=== PATIENT | female | born 2000 | race Caucasian/White ===

== ENCOUNTER 2021-02-17 20:59 | Emergency (ER) | payer MEDICAID, SELFPAY ==
[2021-02-17 21:09] VITALS: BP 115/72; PULSE 86; RESP 18; TEMP 36.4; O2SAT 100
[2021-02-17 22:31] LABS: Influenza A PCR NEGATIVE (Negative); Influenza B PCR NEGATIVE (Negative); Resp Syncy Virus RNA Qual PCR NEGATIVE (Negative); SARS COV2 PCR INHOUSE NEGATIVE (Negative)
--- NOTE | 2021-02-17 23:35 | ED_ITS ---
HPI - General Adult General Chief complaint: Upper Respiratory Symptoms Stated complaint: sore throat,cough Time Seen by Provider: 02/17/21 23:35 Source: patient Mode of arrival: ambulatory Limitations: no limitations History of Present Illness HPI narrative: 20-year-old female came in for evaluation generalized body aches, runny nose, mild dry cough, patient was exposed to her grandmother who were sick. Patient is known history of asthma but has no difficulty breathing. Related Data Allergies Allergy/AdvReac Type Severity Reaction Status Date / Time No Known Allergies Allergy Unverified 12/17/19 16:56 Review of Systems Review of Systems: All other systems are reviewed and are negative Constitutional: Reports as per HPI and Reports no additional constitutional complaints Eyes: Reports as per HPI and Reports no additional eye complaints Reports system reviewed and no additional complaints, except as documented Cardiovascular: Reports as per HPI and Reports no additional cardiovascular complaints Respiratory: Reports as per HPI and Reports no additional respiratory complaints Gastrointestinal: Reports as per HPI and Reports no additional gastrointestinal complaints Genitourinary: Reports no additional female genitourinary complaints Musculoskeletal: Reports no additional musculoskeletal complaints Skin/Breast: Reports system reviewed and no additional complaints, except as docu Psychiatric: Reports no additional psychiatric complaints Endocrine: Reports no additional endocrine complaints Hematologic/Lymphatic: Reports no additional hematologic/lymphatic complaints Allergic/Immunologic: Reports no additional allergic/immunologic complaints Reports system reviewed and no additional complaints, except as documented and Reports Abnormal speech present [facility] Past Medical History Medical History No known health problems Social History Social History Advance Directives: No Advance Directives Information Provided: No Patient : No Physical Exam Vital Signs: Vital Signs: Last Vital Signs Temp 97.6 F 02/17/21 21:09 Pulse 86 02/17/21 21:09 Resp 18 02/17/21 21:09 BP 115/72 02/17/21 21:09 Pulse Ox 100 02/17/21 21:09 Body Mass Index 20.0 vital signs have been reviewed as appeared to be correct. Blood pressure normal. Heart rate normal. Respiration rate normal. Temperature normal. Oxygen saturation normal. Appearance: Alert. Oriented X3. No acute distress. Head: Normal external exam. Normocephalic. Atraumatic. No Pollack signs noted. No raccoon eyes noted Eyes: PERRLA. EOMI. Conjunctiva and sclera normal. Eyelids normal. ENT: TM's Normal. Pharynx normal. Uvula midline. Moist mucous membranes. No trismus noted. No drooling noted. No muffled voice noted. Neck: Normal inspection. Neck supple. FROM. No adenopathy. Thyroid Normal. No meningeal signs. No neck mass noted. CVS: Normal heart rate and rhythm. Heart sound normal. No murmurs noted. Pulses normal throughout. Respiratory: No respiratory distress. Painless inspiration. Breath sounds normal. No wheezes/rales/rhonchi noted. Chest nontender. No accessory muscle usage noted or decreased air movement noted. Abdomen: Soft and nontender. Bowel sounds normal in all 4 quadrants. No distention noted. No organomegaly noted. No visible injury noted. Back: No CVA tenderness. Full range of motion noted. Skin: Skin warm and dry. Normal skin color. Normal skin turgor. No rashes/lesions/lacerations noted. Extremities: No lower extremity edema. Extremities exhibit normal range of motion. Extremities nontender. Neuro: Oriented X 3. Cranial nerve exam: II-XII are grossly intact No motor deficit. No sensory deficit. Reflexes normal. Course Course Course Narrative: Assessment and plan. 20-year-old female came in with viral syndrome symptoms, patient tested negative for COVID / influenza/ RSV. Patient was instructed to use NSAIDs for fever and body ache and drink plenty of fluids. Medical Decision Making Lab Data Lab results reviewed: Yes I reviewed the patient's lab results. Labs: Lab Results 02/17/21 Range/Units 21:39 Influenza Type A (PCR) NEGATIVE (Negative) Influenza Type B (PCR) NEGATIVE (Negative) RSV RNA Qual (PCR) NEGATIVE (Negative) SARS-CoV-2 RNA (RT-PCR) NEGATIVE (Negative) Discharge Plan Discharge Clinical Impression: Acute viral syndrome Patient Disposition: Home, Self-Care Instructions: Viral Syndrome (ED) Additional Instructions: no COVID infection. Referrals: [facility] [Primary Care Provider] - 2 days
[2021-02-18 00:25] VITALS: BP 108/62; PULSE 64; RESP 16; TEMP 36.9; O2SAT 100
== END 2021-02-18 00:26 | disposition home or self-care (01) ==
PROVIDERS: Emergency Provider Emergency Medicine
DX: B34.9 Viral infection, unspecified (principal); Z20.822 Contact with and (suspected) exposure to COVID-19
CPT/HCPCS: 0241U; 36415; 99283

== ENCOUNTER 2021-12-17 14:31 | Inpatient (IN) | payer MEDICAID, SELFPAY ==
[2021-12-17] VITALS (7 sets, daily range): BP systolic 94–130; BP diastolic 46–78; PULSE 74–110; RESP 14–18; TEMP 36.6–38.3; O2SAT 100; BMI 23.3
--- NOTE | ~2021-12-17 | MR_ITS ---
EXAMINATION: MR LUMBAR SPINE WITHOUT AND WITH CONTRAST CLINICAL INFORMATION: Lumbar pain/pyelonephritis. COMPARISON: None TECHNIQUE: MRI of the lumbar spine was obtained using routine sequences without and with intravenous contrast. A total of 6.5 mL Gadavist was intravenously administered. Images are mild to moderately motion degraded. FINDINGS: The lumbar vertebral bodies maintain normal heights and alignment. The disc heights are preserved. No bone marrow edema is seen. The distal spinal cord appears normal. The conus medullaris terminates normally at the T12 level. There is mild amount of edema within the posterior paraspinal musculature. No paraspinal collection is seen. The psoas musculature appears symmetric. The retroperitoneal tissues are within normal limits. SPINAL LEVELS: L1-L2: No posterior disc abnormality. No spinal canal or neural foraminal stenosis. L2-L3: No posterior disc abnormality. No spinal canal or neural foraminal stenosis. L3-L4: No posterior disc abnormality. No spinal canal or neural foraminal stenosis. L4-L5: Shallow central protrusion. No spinal canal or neural foraminal stenosis. L5-S1: No posterior disc abnormality. No spinal canal or neural foraminal stenosis. MR/MR lumbar spine wo/w con IMPRESSION: No significant abnormality in the lumbar spine. No spinal canal stenosis or nerve root compression. Small central protrusion seen at L4-L5. Mild nonspecific posterior paraspinal edema without collection. No abnormal enhancement identified.
--- NOTE | ~2021-12-17 | US_ITS ---
EXAMINATION: US PELVIS CLINICAL INFORMATION: Abdominal pain. Right adnexal lesion noted on same-day CT of the abdomen/pelvis. COMPARISON: CT abdomen/pelvis 12/17/2021. TECHNIQUE: Ultrasound of the pelvis is performed using both transabdominal and transvaginal transducers along with Doppler. Transvaginal imaging is performed due to inadequate visualization transabdominally. FINDINGS: The uterus is anteverted and measures 7.6 x 4.1 x 5 cm. No fibroid noted. The endometrium measures 0.2 cm in thickness without discrete focal abnormality. There is preserved flow to both ovaries at the moment of this examination. The left ovary measures 3.4 x 2 x 3.5 cm (13 mL). The right ovary measures 5.5 x 4 x 4 cm (46 mL). Discrepancy in size is likely related with the presence of a 4.1 x 2.7 x 2.7 cm complicated cystic lesion in the right ovary demonstrating layering and lacelike debris. Small amount of free fluid. US/US pelvic ovarian doppler IMPRESSION: There is a 4.1 cm right ovarian cystic lesion with layering and lacelike debris coming favored to represent a hemorrhagic cyst. A follow-up pelvic ultrasound in 6-12 weeks is recommended to reassess. There is preserved flow to both ovaries at the moment of this examination. A small amount of free fluid in the pelvis is likely physiologic.
--- NOTE | ~2021-12-17 | US_ITS ---
EXAMINATION: US PELVIS CLINICAL INFORMATION: Abdominal pain. Right adnexal lesion noted on same-day CT of the abdomen/pelvis. COMPARISON: CT abdomen/pelvis 12/17/2021. TECHNIQUE: Ultrasound of the pelvis is performed using both transabdominal and transvaginal transducers along with Doppler. Transvaginal imaging is performed due to inadequate visualization transabdominally. FINDINGS: The uterus is anteverted and measures 7.6 x 4.1 x 5 cm. No fibroid noted. The endometrium measures 0.2 cm in thickness without discrete focal abnormality. There is preserved flow to both ovaries at the moment of this examination. The left ovary measures 3.4 x 2 x 3.5 cm (13 mL). The right ovary measures 5.5 x 4 x 4 cm (46 mL). Discrepancy in size is likely related with the presence of a 4.1 x 2.7 x 2.7 cm complicated cystic lesion in the right ovary demonstrating layering and lacelike debris. Small amount of free fluid. US/US pelvic and transvaginal IMPRESSION: There is a 4.1 cm right ovarian cystic lesion with layering and lacelike debris coming favored to represent a hemorrhagic cyst. A follow-up pelvic ultrasound in 6-12 weeks is recommended to reassess. There is preserved flow to both ovaries at the moment of this examination. A small amount of free fluid in the pelvis is likely physiologic.
--- NOTE | ~2021-12-17 | US_ITS ---
EXAMINATION: US RETROPERITONEAL LIMITED (RENAL ONLY) CLINICAL INFORMATION: Pyelonephritis, evaluate for abscess. COMPARISON: CT abdomen and pelvis 12/17/2021 TECHNIQUE: Renal ultrasound was performed utilizing a curved array transducer. FINDINGS: RIGHT KIDNEY: 12.3 x 5 x 5 cm (SAG x AP x TRV). The kidney is normal in size, contour, and echogenicity. Renal cortical thickness is normal. No calculi or focal parenchymal lesions. No hydronephrosis. LEFT KIDNEY: 11.1 x 5.9 x 5.4 cm (SAG x AP x TRV). The kidney is normal in size, contour, and echogenicity. Renal cortical thickness is normal. No calculi or focal parenchymal lesions. No hydronephrosis. US/US renal BI IMPRESSION: 1. No focal renal lesion/abscess identified sonographically. 2. No hydronephrosis.
--- NOTE | ~2021-12-17 | CT_ITS ---
EXAMINATION: CT ABDOMEN AND PELVIS WITH CONTRAST CLINICAL INFORMATION: Diffuse abdominal pain. Nausea and vomiting. COMPARISON: None. TECHNIQUE: Multidetector CT volumetric acquisition of the abdomen and pelvis was performed after the administration of 85 mL of intravenous Omnipaque 350. The data set was reformatted in the sagittal and coronal planes and reviewed on an independent workstation. This CT examination was performed using dose optimization techniques as appropriate, variously including the following: *Automated exposure control *Adjustment of mA and/or kV according to patient size (this includes techniques or standardized protocols for targeted exams where dose is matched to indication/reason for exam; i.e. extremities or head) *Use of iterative reconstruction technique DLP: 408 mGy-cm. FINDINGS: LOWER CHEST: Included lung bases unremarkable. LIVER, GALLBLADDER, BILIARY TREE: Liver normal size and attenuation. There is a 0.6 cm low-attenuation mass in hepatic segment 4B/5 (series 3, image 24) too small to characterize. No intra-or extrahepatic ductal dilatation. Hepatic and portal veins patent. Gallbladder partially distended and within normal limits. PANCREAS: Normal. No ductal dilatation, mass, or surrounding stranding. SPLEEN: Normal size and appearance. Splenic vein patent. ADRENAL GLANDS AND KIDNEYS: Adrenal glands normal. Right kidney is normal. There is ill-defined region of global hypoenhancement in the upper pole of the left kidney (series 5, image 48), extending from the renal medulla to the capsule measuring approximately 3.9 x 2.9 cm. No cortical rim sign is seen and findings are highly suspicious for lobar nephronia/acute focal nephritis. In the mid left kidney, there is a ill-defined smaller and slightly more defined hypoenhancing 1.8 x 1.1 cm mass (series 5, image 38), likely representing the second region of acute focal nephritis with possible subtle evolving abscess. URETERS AND BLADDER: Ureters decompressed and within normal limits. Bladder partially distended and suboptimally assessed, but grossly unremarkable. PELVIC ORGANS: Uterus anteverted and anteflexed and within normal limits. Left ovary is seen anteriorly in the left adnexa adjacent to the iliac vessels, measuring 3.9 x 2.1 x 2.5 cm and appearing unremarkable. The right ovary is seen posteriorly in the adnexa, measuring 4.7 x 3.8 x 3.8 cm. There is a dominant 2.8 x 2.7 x 3.4 cm complex cystic mass with fluid level, suspicious for hemorrhagic cyst or endometrioma. There is a small amount of free fluid in the pelvis. GASTROINTESTINAL TRACT: Normal. Small and large bowel loops decompressed. Appendix in right lower quadrant is partially visualized and appears unremarkable to the extent seen.. LYMPHOVASCULAR STRUCTURES: Abdominal aorta normal in caliber. No periaortic collections. No abdominal or pelvic adenopathy or free fluid collection. BONES: Within normal limits. CT/CT abdomen pelvis w IV con IMPRESSION: 1. Abnormal appearance of the left kidney. Findings are highly suspicious for lobar nephronia/acute focal nephritis in the upper pole. Similar smaller ill-defined region of masslike hypoenhancement is seen in the mid left kidney, possibly a subtle evolving abscess. Close clinical correlation and follow-up imaging post treatment is recommended to document resolution of findings. 2. Indeterminate 0.6 cm low-attenuation mass in the central liver, too small to adequately characterize. This can be reassessed at the time of the above suggested follow-up imaging to ensure stability. 3. Enlarged right ovary with dominant complex cystic mass fluid level, suspicious for a hemorrhagic cyst or endometrioma. Close clinical correlation and follow-up assessment with transvaginal pelvic ultrasound is recommended. This result was discussed with LYNN Roblero 12/17/2021, 5:23 PM and it was ascertained that the content and urgency of this report was understood at the time of direct communication.
[2021-12-17 15:00] LABS: Basophils Percent Auto 0.1 % (0-2); Eosinophils Percent Auto 0.1 % (0-4); Hematocrit 32.4 % (37.0-47.0); Imm Gran Abs Auto 0.12 X10*3/uL (0.00-0.03); Imm Gran Pct Auto 0.6 % (0.0-0.4); Lymphocytes Absolute Auto 1.2 X10*3/uL (1.2-4.9); Lymphocytes Percent Auto 6.1 % (20-40); MANUAL DIFF FLAG SCAN; Mean Corpuscular Hemoglobin 30.1 pg (27.0-33.0); Mean Corpuscular Volume 88.8 fL (80.0-98.0); Mean Platelet Volume 10.8 fL (9.4-12.3); Monocytes Absolute Auto 1.8 X10*3/uL (0.1-1.2); Monocytes Percent Auto 9.3 % (2-11); Neutrophils Absolute Auto 16.6 x10*3/uL (2.0-8.3); Neutrophils Percent Auto 83.8 % (45-73); Platelet Count 250 X10*3/uL (160-400); Red Blood Count 3.65 X10*6/uL (4.20-5.50); Red Cell Distribution Width 13.1 % (11.0-16.0); SCAN SMEAR FLAG 1; White Blood Count 19.8 X10*3/uL (4.8-10.8)
[2021-12-17 15:17] LABS: Alanine Aminotransferase 23 U/L (0-31); Albumin Level 3.8 g/dL (3.5-5.0); Alkaline Phosphatase 90 U/L (39-117); Anion Gap 18 (12-20); Aspartate Amino Transferase 22 U/L (5-31); Bilirubin Direct 0.5 mg/dL (0.0-0.5); Bilirubin Total 0.9 mg/dL (0.0-1.0); Blood Urea Nitrogen 10 mg/dL (9-16); Calcium 8.8 mg/dL (8.4-10.2); Carbon Dioxide 21 mmol/L (22-29); Chloride 98 mmol/L (96-108); Creatinine Clr Calc Pharmacy 101.3; Estimated Glomerular Filt Rate > 60; Glucose Random 85 mg/dL (60-115); Lipase 9 U/L (8-78); Potassium 3.6 mmol/L (3.3-5.1); Sodium 133 mmol/L (135-145); Total Protein 7.4 g/dL (6.5-8.0)
[2021-12-17 15:20] LABS: SLIDE REVIEW VERIFIED
[2021-12-17 15:22] LABS: Lactic Acid 2.5 mmol/L (0.5-2.0)
[2021-12-17 15:30] LABS: COVID-19 Test Negative (Negative)
[2021-12-17] MEDS: Acetaminophen 325 MG TABLET 975 MG PO (15:34)
[2021-12-17] MEDS: 0.9 % Sodium Chloride 1,000 ML 999 ML IVCONT ×2 (15:35→15:52)
[2021-12-17] MEDS: ondansetron HCL 4 MG/2 ML VIAL IVPUSH ×2 (15:35→19:24)
[2021-12-17] MEDS: Morphine Sulfate 4 MG/ML CARTRIDGE IVPUSH ×3 (15:35→23:33)
[2021-12-17 15:54] LABS: HCG Quantitative < 2 mIU/mL
--- NOTE | 2021-12-17 16:14 | PC.NURSE ---
Provider aware of temperature
--- NOTE | 2021-12-17 16:28 | ED_ITS ---
HPI - Abdominal Pain General Chief Complaint: Nausea/Vomiting/Diarrhea Stated Complaint: ABD PAIN Time Seen by Provider: 12/17/21 15:27 Source: patient and family Limitations: no limitations History of Present Illness HPI narrative: 21-year-old female with no pertinent PMH presenting with constipation, abdominal pain, nausea, vomiting, fevers x 4 days. Patient reports no bowel movement for at least 4 days, and has been experiencing gradual worsening abdominal pain, nausea and vomiting since. Reports feeling ?numb ?, weak, chest heaviness, and being cold since she presented to the hospital. Patient upset and crying stating she thinks she is going to , not giving a very good history or answering questions. Patient reports she is currently on her period, no chills she could be . MD elicited complaint: abdominal pain Onset (ago): day(s) Pain Consistency: other (Worsening) Location: diffuse Severity: severe Associated symptoms: nausea, vomiting, fever and chills Related Data Allergies Allergy/AdvReac Type Severity Reaction Status Date / Time No Known Allergies Allergy Unverified 12/17/19 16:56 Review of Systems Review of Systems Constitutional : + Fever, + Chills, No Night Sweats, + Fatigue, + Malaise. Patient stating ?Im dying ? Cardiovascular : + Chest heaviness , No SOB Respiratory : No Cough, No Sputum, No Wheezing, No Dyspnea Gastrointestinal : + Nausea, + Vomiting, + constipation, No Diarrhea, + abdominal Pain, No Hematochezia, No Melena Genitourinary : Currently on menstrual cycle, No irregular bleeding, No Dysuri a, No Urinary Frequency, No Hematuria,No Urinary Incontinence, No Urgency, No Flank Pain Musculoskeletal : No joint pain, No Myalgias, No Joint Swelling Skin : No Skin Lesions, No rash Neuro : + Weakness, + Numbness, No Paresthesias, No Loss of Consciousness, No Dizziness, No Headache Heme/Lymph: No Lymphadenopathy Endocrine : No Temperature Intolerance Yes all other systems are reviewed and are negative [facility] Past Medical History Medical History No known health problems Social History Social History Advance Directives: No Advance Directives Information Provided: No Physical Exam ED Vital Signs: Vital Signs - 24 hr 12/17/21 14:40 12/17/21 15:35 12/17/21 18:06 Temperature 101 F H Pulse Rate 101 H Respiratory Rate 17 14 15 Blood Pressure 101/50 L Pulse Oximetry 100 Oxygen Delivery Method Room Air BMI result Body Mass Index 23.3 Vital signs have been reviewed and all within normal limits Appearance: Alert. Oriented X3. Patient tearful, upset, distressed. Patient shaking, pseudo seizure like activity, answering questions Head: Normal external exam. Normocephalic. Eyes: PERRLA. EOMI. Conjunctiva and sclera normal. Eyelids normal. ENT: Pharynx normal. Uvula midline. Moist mucous membranes. No trismus noted. No drooling noted. No muffled voice noted. Neck: Normal inspection. Neck supple. FROM. No adenopathy. No meningeal signs. CVS: Normal heart rate and rhythm. Heart sound normal. No murmurs noted. Pulses normal throughout. Respiratory: No respiratory distress. Painless inspiration. Breath sounds normal. No wheezes/rales/rhonchi noted. Chest nontender. No accessory muscle usage noted or decreased air movement noted. Abdomen: Soft and diffusely tender. Nondistended. + guarding. No rigidity. Bowel sounds normal in all 4 quadrants. . No organomegaly noted. No visible injury noted. Not tolerating exam, writhing in pain. Back: No CVA tenderness. Full range of motion noted. Skin: Skin warm, diaphoretic. Normal skin color. Normal skin turgor. No rashes/lesions/lacerations noted. Extremities: Extremities exhibit normal range of motion. Extremities nontender. Neuro: Oriented X 3. No motor deficit. No sensory deficit. Reflexes normal. Normal steady gait. CN's II-XII intact bilaterally? Course Course Course Narrative: 15:30 21-year-old female with no pertinent PMH presenting with constipation, abdominal pain, decreased urine output, nausea, vomiting, fevers x 4 days. On exam, febrile 101.1, tachycardic at 101. Patient tearful, upset, distress, breathing in pain on stretcher, with pseudo seizure like activity. Patient talking significant other, answering questions intermittently. Abdomen diffusely tender on exam, patient not tolerating palpation. - Labs were obtained in triage and Labs remarkable for leukocytosis 19.8, HGB 11, sodium 113, lactic acid 2.5. - patient negative for COVID. - therefore at this time will obtain CT abdomen pelvis pending at this time. - IV fluids initiated, Tylenol for antipyretic, IV morphine and 4 mg of Zofran and will reassess after CT results. Reevaluation(s) Reevaluation #1: - CT scan abdomen pelvis revealed abnormal appearance of left kidney questioning lobular nephronia/acute focal nephritis in the upper pole. Also noted to have similar ill-defined region of masslike hypo and Alex mint is seen in the left mid kidney possibly evolving abscess. - CT scan abdomen pelvis also reveals a 0.6 cm mass in central liver too small to characterize. - CT scan abdomen pelvis with IV contrast also revealed enlarged right ovary with dominant complex cystic mass fluid level, suspicious for hemorrhagic cyst or endometrioma. - therefore at this time will provide IV Zosyn. - I also discussed with this case with Dr. Daley and he reported that the patient can be admit to medicine for focal nephritis. He reported she will need IV antibiotics and then 2 weeks oral. No acute urology issue at this time. - will also obtain ovarian ultrasound and discussed this case with Dr. Jalloh [facility] provider as well. Patient understands agrees with this plan. Time: 17:40 Reevaluation #2: - Dr. Jalloh recommended treating the patient for PID as exam is very limited due to patient anxiety/pain. We are unable to rule out. Although she is not , there is no abnormalities on the cervical exam. She does not have any abscesses. Therefore at this time will add doxycycline IV b.i.d. into the patient can tolerate p.o. then she should be transitioned to p.o. doxycycline and Flagyl b.i.d. times 14 days when she goes home and she will also need to follow-up with Dr. Shubham Soto as an outpatient basis. Patient understands agrees with this plan. Still waiting ultrasound results. Plan is still to admit. Time: 19:49 [facility] [place] - Abdominal Pain Medical Records Attestation: I reviewed the patient's medical records. Lab Data Attestation: I reviewed the patient's lab results. Result diagrams: 12/17/21 14:52 12/17/21 14:52 Labs: Lab Results 09/18/22 09/18/22 09/18/22 Range/Units 14:51 14:51 14:52 WBC 19.8 H (4.8-10.8) X10*3/uL RBC 3.65 L (4.20-5.50) X10*6/uL Hgb 11.0 L (12.0-16.0) g/dl Hct 32.4 L (37.0-47.0) % MCV 88.8 (80.0-98.0) fL MCH 30.1 (27.0-33.0) pg MCHC 34.0 (31.0-35.0) g/dl RDW 13.1 (11.0-16.0) % Plt Count 250 (160-400) X10*3/uL MPV 10.8 (9.4-12.3) fL Immature Gran % (Auto) 0.6 H (0.0-0.4) % Neut % (Auto) 83.8 H (45-73) % Lymph % (Auto) 6.1 L (20-40) % [place] % (Auto) 9.3 (2-11) % Eos % (Auto) 0.1 (0-4) % Baso % (Auto) 0.1 (0-2) % Lymph # (Auto) 1.2 (1.2-4.9) X10*3/uL [place] # (Auto) 1.8 H (0.1-1.2) X10*3/uL Eos # (Auto) 0.0 (0.0-0.4) X10*3/uL Baso # (Auto) 0.0 (0.0-0.2) X10*3/uL Abs Immat Gran (auto) 0.12 H (0.00-0.03) X10*3/uL Absolute Neuts (auto) 16.6 H (2.0-8.3) x10*3/uL Absolute Nucleated RBC 0.000 (0.0-0.012) X10*3/uL Nucleated RBC % (auto) 0.0 (0.0-0.2) /100WBC Smear Tech's Comments VERIFIED Sodium (135-145) mmol/L Potassium (3.3-5.1) mmol/L Chloride (96-108) mmol/L Carbon Dioxide (22-29) mmol/L Anion Gap (12-20) BUN (9-16) mg/dL Creatinine (0.5-1.4) mg/dL Estim Creat Clear Calc Estimated GFR Random Glucose (60-115) mg/dL Lactic Acid 2.5 H* (0.5-2.0) mmol/L Lactic Acid F/U @ 2Hr (0.5-2.0) mmol/L Calcium (8.4-10.2) mg/dL Total Bilirubin (0.0-1.0) mg/dL Direct Bilirubin (0.0-0.5) mg/dL AST (5-31) U/L ALT (0-31) U/L Alkaline Phosphatase (39-117) U/L Total Protein (6.5-8.0) g/dL Albumin (3.5-5.0) g/dL Lipase (8-78) U/L Beta HCG, Quant mIU/mL Urine Color Urine Appearance Urine pH (5.0-9.0) Ur Specific [place] (1.005-1.025) Urine Protein (Neg-Trace) mg/dL Urine Glucose (UA) (Negative) mg/dL Urine Ketones (Negative) mg/dL Urine Blood (Negative) Urine Nitrite (Negative) Ur Leukocyte Esterase (Negative) Urine RBC (0-2) /HPF Urine WBC (0-5) /HPF Ur Squamous Epith Cells (0-2) /HPF Urine Bacteria (None Seen) Hyaline Casts (0-2) /LPF Urine Test (NEGATIVE) COVID-19 ([facility]) Negative (Negative) COVID-19 Clin Com See Note 12/17/21 12/17/21 12/17/21 Range/Units 14:52 17:24 18:02 WBC (4.8-10.8) X10*3/uL RBC (4.20-5.50) X10*6/uL Hgb (12.0-16.0) g/dl Hct (37.0-47.0) % MCV (80.0-98.0) fL MCH (27.0-33.0) pg MCHC (31.0-35.0) g/dl RDW (11.0-16.0) % Plt Count (160-400) X10*3/uL MPV (9.4-12.3) fL Immature Gran % (Auto) (0.0-0.4) % Neut % (Auto) (45-73) % Lymph % (Auto) (20-40) % [place] % (Auto) (2-11) % Eos % (Auto) (0-4) % Baso % (Auto) (0-2) % Lymph # (Auto) (1.2-4.9) X10*3/uL [place] # (Auto) (0.1-1.2) X10*3/uL Eos # (Auto) (0.0-0.4) X10*3/uL Baso # (Auto) (0.0-0.2) X10*3/uL Abs Immat Gran (auto) (0.00-0.03) X10*3/uL Absolute Neuts (auto) (2.0-8.3) x10*3/uL Absolute Nucleated RBC (0.0-0.012) X10*3/uL Nucleated RBC % (auto) (0.0-0.2) /100WBC Smear Tech's Comments Sodium 133 L (135-145) mmol/L Potassium 3.6 (3.3-5.1) mmol/L Chloride 98 (96-108) mmol/L Carbon Dioxide 21 L (22-29) mmol/L Anion Gap 18 (12-20) BUN 10 (9-16) mg/dL Creatinine 0.79 (0.5-1.4) mg/dL Estim Creat Clear Calc 101.3 Estimated GFR > 60 Random Glucose 85 (60-115) mg/dL Lactic Acid (0.5-2.0) mmol/L Lactic Acid F/U @ 2Hr 0.6 (0.5-2.0) mmol/L Calcium 8.8 (8.4-10.2) mg/dL Total Bilirubin 0.9 (0.0-1.0) mg/dL Direct Bilirubin 0.5 (0.0-0.5) mg/dL AST 22 (5-31) U/L ALT 23 (0-31) U/L Alkaline Phosphatase 90 (39-117) U/L Total Protein 7.4 (6.5-8.0) g/dL Albumin 3.8 (3.5-5.0) g/dL Lipase 9 (8-78) U/L Beta HCG, Quant < 2 mIU/mL Urine Color [place] A Urine Appearance Clear Urine pH 7.0 (5.0-9.0) Ur Specific [place] >= 1.030 H (1.005-1.025) Urine Protein 30 (1+) H (Neg-Trace) mg/dL Urine Glucose (UA) Negative (Negative) mg/dL Urine Ketones 40 (Negative) mg/dL Urine Blood Large (3+) H (Negative) Urine Nitrite Negative (Negative) Ur Leukocyte Esterase Trace H (Negative) Urine RBC >20 H (0-2) /HPF Urine WBC 6-10 H (0-5) /HPF Ur Squamous Epith Cells 6-10 (0-2) /HPF Urine Bacteria 3+ (None Seen) Hyaline Casts 0-2 (0-2) /LPF Urine Test (NEGATIVE) COVID-19 ([facility]) (Negative) COVID-19 Clin Com 12/17/21 Range/Units 18:02 WBC (4.8-10.8) X10*3/uL RBC (4.20-5.50) X10*6/uL Hgb (12.0-16.0) g/dl Hct (37.0-47.0) % MCV (80.0-98.0) fL MCH (27.0-33.0) pg MCHC (31.0-35.0) g/dl RDW (11.0-16.0) % Plt Count (160-400) X10*3/uL MPV (9.4-12.3) fL Immature Gran % (Auto) (0.0-0.4) % Neut % (Auto) (45-73) % Lymph % (Auto) (20-40) % [place] % (Auto) (2-11) % Eos % (Auto) (0-4) % Baso % (Auto) (0-2) % Lymph # (Auto) (1.2-4.9) X10*3/uL [place] # (Auto) (0.1-1.2) X10*3/uL Eos # (Auto) (0.0-0.4) X10*3/uL Baso # (Auto) (0.0-0.2) X10*3/uL Abs Immat Gran (auto) (0.00-0.03) X10*3/uL Absolute Neuts (auto) (2.0-8.3) x10*3/uL Absolute Nucleated RBC (0.0-0.012) X10*3/uL Nucleated RBC % (auto) (0.0-0.2) /100WBC Smear Tech's Comments Sodium (135-145) mmol/L Potassium (3.3-5.1) mmol/L Chloride (96-108) mmol/L Carbon Dioxide (22-29) mmol/L Anion Gap (12-20) BUN (9-16) mg/dL Creatinine (0.5-1.4) mg/dL Estim Creat Clear Calc Estimated GFR Random Glucose (60-115) mg/dL Lactic Acid (0.5-2.0) mmol/L Lactic Acid F/U @ 2Hr (0.5-2.0) mmol/L Calcium (8.4-10.2) mg/dL Total Bilirubin (0.0-1.0) mg/dL Direct Bilirubin (0.0-0.5) mg/dL AST (5-31) U/L ALT (0-31) U/L Alkaline Phosphatase (39-117) U/L Total Protein (6.5-8.0) g/dL Albumin (3.5-5.0) g/dL Lipase (8-78) U/L Beta HCG, Quant mIU/mL Urine Color Urine Appearance Urine pH (5.0-9.0) Ur Specific [place] (1.005-1.025) Urine Protein (Neg-Trace) mg/dL Urine Glucose (UA) (Negative) mg/dL Urine Ketones (Negative) mg/dL Urine Blood (Negative) Urine Nitrite (Negative) Ur Leukocyte Esterase (Negative) Urine RBC (0-2) /HPF Urine WBC (0-5) /HPF Ur Squamous Epith Cells (0-2) /HPF Urine Bacteria (None Seen) Hyaline Casts (0-2) /LPF Urine Test NEGATIVE (NEGATIVE) COVID-19 ([facility]) (Negative) COVID-19 Clin Com Imaging Data CT scan abdomen pelvis with IV contrast: Attestation: I personally reviewed and interpreted this imaging study as follows: Radiologist's impression: FINDINGS: LOWER CHEST: Included lung bases unremarkable. LIVER, GALLBLADDER, BILIARY TREE: Liver normal size and attenuation. There is a 0.6 cm low-attenuation mass in hepatic segment 4B/5 (series 3, image 24) too small to characterize. No intra-or extrahepatic ductal dilatation. Hepatic and portal veins patent. Gallbladder partially distended and within normal limits. PANCREAS: Normal. No ductal dilatation, mass, or surrounding stranding. SPLEEN: Normal size and appearance. Splenic vein patent. ADRENAL GLANDS AND KIDNEYS: Adrenal glands normal. Right kidney is normal. There is ill-defined region of global hypoenhancement in the upper pole of the left kidney (series 5, image 48), extending from the renal medulla to the capsule measuring approximately 3.9 x 2.9 cm. No cortical rim sign is seen and findings are highly suspicious for lobar nephronia/acute focal nephritis. In the mid left kidney, there is a ill-defined smaller and slightly more defined hypoenhancing 1.8 x 1.1 cm mass (series 5, image 38), likely representing the second region of acute focal nephritis with possible subtle evolving abscess. URETERS AND BLADDER: Ureters decompressed and within normal limits. Bladder partially distended and suboptimally assessed, but grossly unremarkable. PELVIC ORGANS: Uterus anteverted and anteflexed and within normal limits. Left ovary is seen anteriorly in the left adnexa adjacent to the iliac vessels, measuring 3.9 x 2.1 x 2.5 cm and appearing unremarkable. The right ovary is seen posteriorly in the adnexa, measuring 4.7 x 3.8 x 3.8 cm. There is a dominant 2.8 x 2.7 x 3.4 cm complex cystic mass with fluid level, suspicious for hemorrhagic cyst or endometrioma. There is a small amount of free fluid in the pelvis. GASTROINTESTINAL TRACT: Normal. Small and large bowel loops decompressed. Appendix in right lower quadrant is partially visualized and appears unremarkable to the extent seen.. LYMPHOVASCULAR STRUCTURES: Abdominal aorta normal in caliber. No periaortic collections. No abdominal or pelvic adenopathy or free fluid collection. BONES: Within normal limits. CT/CT abdomen pelvis w IV con IMPRESSION: ? 1. Abnormal appearance of the left kidney. Findings are highly suspicious for lobar nephronia/acute focal nephritis in the upper pole. Similar smaller ill-defined region of masslike hypoenhancement is seen in the mid left kidney, possibly a subtle evolving abscess. Close clinical correlation and follow-up imaging post treatment is recommended to document resolution of findings. 2. Indeterminate 0.6 cm low-attenuation mass in the central liver, too small to adequately characterize. This can be reassessed at the time of the above suggested follow-up imaging to ensure stability. 3. Enlarged right ovary with dominant complex cystic mass fluid level, suspicious for a hemorrhagic cyst or endometrioma. Close clinical correlation and follow-up assessment with transvaginal pelvic ultrasound is recommended. ? This result was discussed with LYNN Roblero 12/17/2021, 5:23 PM and it was ascertained that the content and urgency of this report was understood at the time of direct communication. Critical Care Time Critical Care Time Critical Care Time: Yes Total Critical Care Time: 60 Attestation: I personally attest to this time spent taking care of the patient Discharge Plan Discharge Clinical Impression: Acute focal nephritis, Fever, Liver mass, Hemorrhagic cyst of right ovary, Sepsis, Pyelonephritis Patient Disposition: Admitted As Inpatient
[2021-12-17] MEDS: iohexoL 350 MG/ML 100 ML INFUS..BTL IV (16:34)
[2021-12-17 16:56] LABS: Reflex Lactate? Lactic Acid Added
--- NOTE | 2021-12-17 17:46 | PC.NURSE ---
Bladder scan 166
[2021-12-17 17:48] LABS: ~Lactic Acid-LAB USE ONLY 0.6 mmol/L (0.5-2.0)
[2021-12-17 18:14] LABS: UPreg QC Valid YES; Urine Pregnancy NEGATIVE (NEGATIVE)
--- NOTE | 2021-12-17 18:26 | PM.IMHP ---
History of Present Illness Date of Service: 12/17/21 Chief Complaint: abdominal pain 21-year-old female with no pertinent PMH presenting with constipation, abdominal pain, nausea, vomiting, fevers x 4 days.? Patient reports no bowel movement for at least 4 days, and has been experiencing gradual worsening abdominal pain, nausea and vomiting since. ER course CT abdomen and pelvis in the ER demonstrates an abnormal appearing left kidney. Findings suspicious for lobar nephronia or acute focal nephritis in the upper pole. Case discussed with Urology who recommends IV antibiotics and close follow-up thereafter Review of Systems Review of Systems: Denies chest pain denies shortness of breath admits to abdominal pain nausea and vomiting admits to fever and chills PMFSH Medical History No known health problems Social History Advance Directives: No Advance Directives Information Provided: No Meds Allergies Allergy/AdvReac Type Severity Reaction Status Date / Time No Known Allergies Allergy Unverified 12/17/19 16:56 Active Medications: Current Medications Sodium Chloride (Ns) 1,000 mls @ 999 mls/hr IVCONT .Q1H1M KARL Stop: 12/17/21 19:00 Last Admin: 12/17/21 18:06 Dose: Not Given Piperacillin Sod/Tazobactam (Sod 4.5 gm/ Sodium Chloride) 100 mls @ 200 mls/hr IV Q6H KARL Sodium Chloride (Ns) 1,000 mls @ 125 mls/hr IVCONT .Q8H KARL Sodium Chloride (0.9 % Sodium Chloride Flush 3 Ml Syringe) 3 ml IVFLUSH QSHIFT [facility] Physical Exam Vital Signs and Narrative: Vital Signs: Last Vital Signs Temp 101 F H 12/17/21 14:40 Pulse 101 H 12/17/21 14:40 Resp 15 12/17/21 18:06 BP 101/50 L 12/17/21 14:40 Pulse Ox 100 12/17/21 14:40 O2 Del Method 12/17/21 14:40 BMI result Body Mass Index 23.3 Const: Other: Visibly anxious but no acute distress Resp: Other: Clear to auscultation bilaterally no rales rhonchi or wheezes Cardio: Other: No S4; positive S1-S2; no S3 murmurs rubs or gallops GI: Other: Soft minimal epigastric tenderness positive bowel sounds 4 quadrants Back/Spine/Pelvis: Other: Mild left CVA tenderness Neuro: Other: Cranial nerves 2-12 grossly intact as tested. Motor is 5/5 all extremities. Sensation is intact. Cognition appropriate but anxious Extrem: Other: No edema bilaterally Results Labs CBC and Chem 7: 12/17/21 14:52 12/17/21 14:52 Labs: Laboratory Results - last 24 hr 12/17/21 12/17/21 12/17/21 14:51 14:51 14:52 MCV 88.8 MCH 30.1 MCHC 34.0 RDW 13.1 Plt Count 250 MPV 10.8 Immature Gran % (Auto) 0.6 H Neut % (Auto) 83.8 H Lymph % (Auto) 6.1 L [place] % (Auto) 9.3 Eos % (Auto) 0.1 Baso % (Auto) 0.1 Lymph # (Auto) 1.2 [place] # (Auto) 1.8 H Eos # (Auto) 0.0 Baso # (Auto) 0.0 Abs Immat Gran (auto) 0.12 H Absolute Neuts (auto) 16.6 H Absolute Nucleated RBC 0.000 Nucleated RBC % (auto) 0.0 Smear Tech's Comments VERIFIED Anion Gap Estim Creat Clear Calc Estimated GFR Random Glucose Lactic Acid 2.5 H* Lactic Acid F/U @ 2Hr Calcium Total Bilirubin Direct Bilirubin AST ALT Alkaline Phosphatase Total Protein Albumin Lipase Beta HCG, Quant Urine Test COVID-19 (RAMEZ) Negative COVID-19 Clin Com See Note 12/17/21 12/17/21 12/17/21 14:52 17:24 18:02 MCV MCH MCHC RDW Plt Count MPV Immature Gran % (Auto) Neut % (Auto) Lymph % (Auto) [place] % (Auto) Eos % (Auto) Baso % (Auto) Lymph # (Auto) [place] # (Auto) Eos # (Auto) Baso # (Auto) Abs Immat Gran (auto) Absolute Neuts (auto) Absolute Nucleated RBC Nucleated RBC % (auto) Smear Tech's Comments Anion Gap 18 Estim Creat Clear Calc 101.3 Estimated GFR > 60 Random Glucose 85 Lactic Acid Lactic Acid F/U @ 2Hr 0.6 Calcium 8.8 Total Bilirubin 0.9 Direct Bilirubin 0.5 AST 22 ALT 23 Alkaline Phosphatase 90 Total Protein 7.4 Albumin 3.8 Lipase 9 Beta HCG, Quant < 2 Urine Test NEGATIVE COVID-19 (RAMEZ) COVID-19 Clin Com Imaging Radiologist's Impressions: Impressions Abdomen/Pelvis CT 12/17/21 16:39 IMPRESSION: 1. Abnormal appearance of the left kidney. Findings are highly suspicious for lobar nephronia/acute focal nephritis in the upper pole. Similar smaller ill-defined region of masslike hypoenhancement is seen in the mid left kidney, possibly a subtle evolving abscess. Close clinical correlation and follow-up imaging post treatment is recommended to document resolution of findings. 2. Indeterminate 0.6 cm low-attenuation mass in the central liver, too small to adequately characterize. This can be reassessed at the time of the above suggested follow-up imaging to ensure stability. 3. Enlarged right ovary with dominant complex cystic mass fluid level, suspicious for a hemorrhagic cyst or endometrioma. Close clinical correlation and follow-up assessment with transvaginal pelvic ultrasound is recommended. This result was discussed with LYNN Roblero 12/17/2021, 5:23 PM and it was ascertained that the content and urgency of this report was understood at the time of direct communication. Assessment and Plan (1) Acute focal nephritis: Status: Acute (2) Hemorrhagic cyst of right ovary: Status: Acute Plan 21-year-old female presents with approximately 4 days of diffuse abdominal pain fever and chills. Workup in the emergency room consistent with focal nephritis left kidney. Also of note is emesis tragic cyst of the right ovary 1. Acute focal nephritis (left) -IV Zosyn q.6 hours -follow-up blood and urine cultures -IV volume repletion with normal saline -follow renal/divalents -pain management 2. Hemorrhagic cyst of right ovary (mother with a history of ovarian cancer) -ER provider discussed with flight control manager -ultrasound and pelvic exam to complete workup -follow-up as an outpatient Full code Ambulation This patient will require at least 2 midnights going forward for IV antibiotics to treat acute focal nephritis. This cannot be achieved and a lesser acute setting . Quality Stroke Does the patient have a stroke diagnosis?: No VTE Prior VTE?: No VTE Risk Level:: Medical - low VTE Device Contraindication: Treatment Not Indicated VTE Drug Contraindication: Treatment Not Indicated
[2021-12-17 18:31] LABS: Appearance Urine Clear; Color Urine Orange; Glucose Urine UA Negative (Negative); Leukocyte Esterase Urine Trace (Negative); Nitrite Urine Negative (Negative); Specific Gravity - Urine >= 1.030 (1.005-1.025); UMIC TRIGGER UACC YES; Urine Blood Large (3+) (Negative); Urine Ketones 40 mg/dL (Negative); Urine Protein 30 (1+) mg/dL (Neg-Trace)
[2021-12-17 18:34] LABS: Bacteria Urine 3+ (None Seen); Hyaline Casts Urine 0-2 /LPF (0-2); RBC Urine >20 /HPF (0-2); UACC Culture Trigger YES
--- NOTE | 2021-12-17 18:59 | PM.GYNCN ---
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 LMP today. The patient has been on control pills over the last 7 years. Urine test was negative, GC and chlamydia with BV panel Trichomonas collected. CBC showed leukocytosis, ways positive for leukocyte esterase microscopic hematuria and protein, urine culture sent. CT scan is suggestive of left-sided nephritis with possible evolving abscess, right complex ovarian cyst possible endometrioma versus hemorrhagic cyst. Pelvic ultrasound showed positive bilateral Doppler flow, 4.1 right complex ovarian cyst possible hemorrhagic cyst cc:: CC: Tony Medina DO [employer]P - Review of Systems Review of Systems ROS Unobtainable: All systems reviewed & are unremarkable except as noted in HPI and below Cardiovascular: Denies Palpatations, Loss of consciousness or Chest pain Respiratory: Denies Cough, Wheezing or Shortness of breath Musculoskeletal: Denies Low back pain Gastrointestinal: Denies Heartburn, Constipation, Diarrhea, Nausea or Vomiting Genitourinary: Denies Pain with urination, Burning with urination or Urinary frequency Neurological: Denies Migranes Psychological: Denies Depression OB [facility] Past Medical History Medical History No known health problems Social History Social History Alcohol intake: never Use of substances other than those prescribed or required for medical reasons: No Advance Directives: No Advance Directives Information Provided: No Patient : No service: No Current occupational status: employed Meds Allergies Allergy/AdvReac Type Severity Reaction Status Date / Time No Known Allergies Allergy Unverified 12/17/19 16:56 Active Medications: Current Medications Sodium Chloride (Ns) 1,000 mls @ 999 mls/hr IVCONT .Q1H1M KARL Stop: 12/17/21 19:00 Last Admin: 12/17/21 18:06 Dose: Not Given Piperacillin Sod/Tazobactam (Sod 4.5 gm/ Sodium Chloride) 100 mls @ 200 mls/hr IV Q6H KARL Sodium Chloride (Ns) 1,000 mls @ 125 mls/hr IVCONT .Q8H KARL Morphine Sulfate (Morphine Sulfate 4 Mg/Ml Cartridge) 4 mg IVPUSH Q4H PRN; Protocol PRN Reason: Pain, Severe (Pain Scale 7-10) Oxycodone HCl (Oxycodone Hcl Immed Release 5 Mg Tablet) 5 mg PO Q6H PRN PRN Reason: Pain, Moderate (Pain Scale 4-6 Sodium Chloride (0.9 % Sodium Chloride Flush 3 Ml Syringe) 3 ml IVFLUSH QSHIFT [facility] Home Medications Medication Instructions Recorded Confirmed Last Taken Type No Known Home Meds 12/18/21 12/18/21 Unknown History 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 Physical Exam Vitals Vital signs: Temp Pulse Resp BP Pulse Ox O2 Del Method 101 F H 101 H 15 101/50 L 100 12/17/21 14:40 12/17/21 14:40 12/17/21 18:06 12/17/21 14:40 12/17/21 14:40 12/17/21 14:40 BMI result Body Mass Index 23.3 Constitutional General Appearance: Healthy appearing, Well-nourished and Well-developed Psychiatric Mood and Affect: active and alert, normal mood and normal affect Skin Appearance: No rashes and No lesions Lungs Respiratory Effort: No intercostal retractions Auscultation: Clear to auscultation Cardiovascular Auscultation: RRR Abdomen Auscultation/Inspection/Palpation: Normal bowel sounds, Soft, Non-distended and Tenderness (Epigastric tenderness, left lower quadrant tenderness no rebound) Female Genitalia (Pelvic) Vulva: No lesions Vagina: Nontender Cervix: No cervical motion tenderness Uterus: Normal size and Nontender Adnexa/Parametria: Adnexal Tenderness: Left, Adnexal Mass: None, Parametrial Tenderness: Left and Parametrial Mass: None Additional Comments: Pelvic exam was suboptimal due to patient anxiety 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 - Results Labs CBC & Chem 7: 12/18/21 06:35 12/18/21 06:35 Labs: Short CBC 12/17/21 Range/Units 14:52 WBC 19.8 H (4.8-10.8) X10*3/uL Hgb 11.0 L (12.0-16.0) g/dl Hct 32.4 L (37.0-47.0) % Plt Count 250 (160-400) X10*3/uL BMP 12/17/21 14:52 Sodium 133 L Potassium 3.6 Chloride 98 Carbon Dioxide 21 L BUN 10 Creatinine 0.79 Calcium 8.8 Liver Function 12/17/21 Range/Units 14:52 Total Bilirubin 0.9 (0.0-1.0) mg/dL Direct Bilirubin 0.5 (0.0-0.5) mg/dL AST 22 (5-31) U/L ALT 23 (0-31) U/L Alkaline Phosphatase 90 (39-117) U/L Albumin 3.8 (3.5-5.0) g/dL Urine 12/17/21 12/17/21 Range/Units 18:02 18:02 Urine Color [place] A Urine Appearance Clear Urine pH 7.0 (5.0-9.0) Ur Specific [place] >= 1.030 H (1.005-1.025) Urine Protein 30 (1+) H (Neg-Trace) mg/dL Urine Glucose (UA) Negative (Negative) mg/dL Urine Test NEGATIVE (NEGATIVE) Imaging CT scan - pelvis: Radiologist's impression: ITS Impressions Abdomen/Pelvis CT 12/17/21 16:39 IMPRESSION: 1. Abnormal appearance of the left kidney. Findings are highly suspicious for lobar nephronia/acute focal nephritis in the upper pole. Similar smaller ill-defined region of masslike hypoenhancement is seen in the mid left kidney, possibly a subtle evolving abscess. Close clinical correlation and follow-up imaging post treatment is recommended to document resolution of findings. 2. Indeterminate 0.6 cm low-attenuation mass in the central liver, too small to adequately characterize. This can be reassessed at the time of the above suggested follow-up imaging to ensure stability. 3. Enlarged right ovary with dominant complex cystic mass fluid level, suspicious for a hemorrhagic cyst or endometrioma. Close clinical correlation and follow-up assessment with transvaginal pelvic ultrasound is recommended. This result was discussed with LYNN Roblero 12/17/2021, 5:23 PM and it was ascertained that the content and urgency of this report was understood at the time of direct communication. US - abdomen: Radiologist's impression: ITS Impressions Abdomen/Pelvis CT 12/17/21 16:39 IMPRESSION: 1. Abnormal appearance of the left kidney. Findings are highly suspicious for lobar nephronia/acute focal nephritis in the upper pole. Similar smaller ill-defined region of masslike hypoenhancement is seen in the mid left kidney, possibly a subtle evolving abscess. Close clinical correlation and follow-up imaging post treatment is recommended to document resolution of findings. 2. Indeterminate 0.6 cm low-attenuation mass in the central liver, too small to adequately characterize. This can be reassessed at the time of the above suggested follow-up imaging to ensure stability. 3. Enlarged right ovary with dominant complex cystic mass fluid level, suspicious for a hemorrhagic cyst or endometrioma. Close clinical correlation and follow-up assessment with transvaginal pelvic ultrasound is recommended. This result was discussed with LYNN Roblero 12/17/2021, 5:23 PM and it was ascertained that the content and urgency of this report was understood at the time of direct communication. Doppler Study Ultrasound 12/17/21 19:15 IMPRESSION: There is a 4.1 cm right ovarian cystic lesion with layering and lacelike debris coming favored to represent a hemorrhagic cyst. A follow-up pelvic ultrasound in 6-12 weeks is recommended to reassess. There is preserved flow to both ovaries at the moment of this examination. A small amount of free fluid in the pelvis is likely physiologic. Pelvic/Transvag US 12/17/21 19:15 IMPRESSION: There is a 4.1 cm right ovarian cystic lesion with layering and lacelike debris coming favored to represent a hemorrhagic cyst. A follow-up pelvic ultrasound in 6-12 weeks is recommended to reassess. There is preserved flow to both ovaries at the moment of this examination. A small amount of free fluid in the pelvis is likely physiologic. Assessment and Plan (1) Pyelonephritis: Status: Acute The patient will be admitted for the treatment of pyelonephritis, will defer the management to the hospitalist service (2) Hemorrhagic cyst of right ovary: Status: Acute Urine test done and GC and chlamydia collected, pelvic ultrasound showed bilateral positive Doppler flows and a right co 4.1 cm complex ovarian cyst possibly hemorrhagic, discussed with the patient the finding on CT scan and pelvic ultrasound showing a right complex ovarian cyst with the possibility of endometrioma or hemorrhagic cyst. The differential diagnosis of complex ovarian cyst were discussed with the patient including but not limited to: benign and/or malignant causes; in addition, discussed with the patient the limitation of using imaging, CT scan and/or pelvic ultrasound, for an accurate diagnosis. I recommended a close follow-up in the outpatient office after discharge. All questions answered, the patient verbalized understanding. (3) PID (acute pelvic inflammatory disease): Status: Acute I recommend to allow the patient to take her own control pills. GC/chlamydia with BV panel/Trichomonas collected. STD screen including: hepatitis-B surface antigen, hepatitis-C antibody, HIV and syphilis screen, please can be done as inpatient or outpatient. The pelvic exam was suboptimal due to patient anxiety; given the finding of left lower abdominal tenderness with left adnexal tenderness and leukocytosis, I recommend antibiotic coverage for the possibility of PID and since the patient will be admitted for IV antibiotics to cover possible pyelonephritis, I recommend the following parental antibiotic treatment for PID: Ceftriaxone 1 g Q 24 hours with doxycycline 100 mg IV q.12., metronidazole 500 mg IV q.12, then transition to oral regimen with doxycycline 100 mg p.o. b.i.d. and Flagyl 500 mg b.i.d. for a total of 14 days, the patient is to be followed up in the office after discharge. This note was generated with a voice recognition program. Some errors may have been overlooked during the review of this note. Sometimes these errors may affect the content or meaning of a given sentence.
[2021-12-17] MEDS: Magnesium Hydrox/Alum Hydrox 30 ML ORAL.SUSP PO (19:11)
[2021-12-17] MEDS: Lidocaine HCl Viscous 2 % 15 ML SOLUTION MUCOUS MEM (19:11)
[2021-12-17] MEDS: Piperacillin Sodium/Tazobactam 4.5 GM in 0.9 % Sodium Chloride 100 ML IV (19:12)
[2021-12-17] MEDS: 0.9 % Sodium Chloride 1,000 ML 125 ML IVCONT (19:12)
[2021-12-17] MEDS: oxyCODONE HCl Immed Release 5 MG TABLET PO (19:23)
[2021-12-17] MEDS: Morphine Sulfate 2 MG/ML CARTRIDGE IVPUSH (20:26)
[2021-12-17] MEDS: Doxycycline Hyclate 100 MG in 0.9 % Sodium Chloride 250 ML 166.67 MG IV (20:27)
--- NOTE | 2021-12-17 21:33 | PC.NURSE ---
Addendum entered by Jordy Lehman 12/17/21 23:22: Pt ambulated to bathroom to try to have a BM. Pt reported that she could not go and when she tried to bear down she became dizzy and nauseous. Hospitalist notified. Original Note: Pt ambulated to bathroom to try to urinate. Pt reported that she could void and when she tried to bear down she became dizzy and nauseous. Hospitalist notified.
[2021-12-17] MEDS: metroNIDAZOLE/NS 500 MG/100 ML PIGGYBACK 100 MG IV (22:28)
[2021-12-17] MEDS: Docusate Sodium 100 MG CAPSULE PO (23:33)
[2021-12-18] VITALS (7 sets, daily range): BP systolic 94–110; BP diastolic 44–56; PULSE 75–98; RESP 12–22; TEMP 36.6–37.6; O2SAT 96–100
[2021-12-18] MEDS: cefTRIAXone sodium 1 GM in 0.9 % Sodium Chloride 50 ML IV (00:51)
--- NOTE | 2021-12-18 01:04 | PC.NURSE ---
Pelvic swab was done at 1800 by staff on the previous shift and never sent down to the lab. Sample was found on top of the cart and sent to the lab. Lab declined to process the sample citing that the collection time was too long ago.
[2021-12-18] MEDS: 0.9 % Sodium Chloride 1,000 ML 125 ML IVCONT ×3 (04:15→20:23)
[2021-12-18] MEDS: Morphine Sulfate 4 MG/ML CARTRIDGE IVPUSH ×5 (04:29→20:24)
[2021-12-18] MEDS: metroNIDAZOLE/NS 500 MG/100 ML PIGGYBACK 100 MG IV ×3 (05:34→22:35)
[2021-12-18] MEDS: ondansetron HCL 4 MG/2 ML VIAL IVPUSH ×3 (05:44→23:56)
[2021-12-18 06:49] LABS: MANUAL DIFF FLAG NO
[2021-12-18 06:56] LABS: Basophils Percent Auto 0.2 % (0-2); Eosinophils Percent Auto 0.2 % (0-4); Hematocrit 26.8 % (37.0-47.0); Hemoglobin 8.9 g/dl (12.0-16.0); Imm Gran Abs Auto 0.08 X10*3/uL (0.00-0.03); Imm Gran Pct Auto 0.6 % (0.0-0.4); Lymphocytes Absolute Auto 1.4 X10*3/uL (1.2-4.9); Lymphocytes Percent Auto 11.5 % (20-40); Mean Corpuscular HGB Conc 33.2 g/dl (31.0-35.0); Mean Corpuscular Volume 90.2 fL (80.0-98.0); Mean Platelet Volume 11.2 fL (9.4-12.3); Monocytes Absolute Auto 1.2 X10*3/uL (0.1-1.2); Monocytes Percent Auto 9.8 % (2-11); Neutrophils Absolute Auto 9.6 x10*3/uL (2.0-8.3); Neutrophils Percent Auto 77.7 % (45-73); Platelet Count 199 X10*3/uL (160-400); Red Blood Count 2.97 X10*6/uL (4.20-5.50); Red Cell Distribution Width 13.4 % (11.0-16.0); White Blood Count 12.3 X10*3/uL (4.8-10.8)
[2021-12-18 07:14] LABS: Alanine Aminotransferase 18 U/L (0-31); Albumin Level 2.9 g/dL (3.5-5.0); Alkaline Phosphatase 61 U/L (39-117); Anion Gap 14 (12-20); Aspartate Amino Transferase 14 U/L (5-31); Bilirubin Total 0.7 mg/dL (0.0-1.0); Blood Urea Nitrogen 7 mg/dL (9-16); Calcium 7.4 mg/dL (8.4-10.2); Carbon Dioxide 18 mmol/L (22-29); Chloride 108 mmol/L (96-108); Creatinine Clr Calc Pharmacy 114.3; Estimated Glomerular Filt Rate > 60; Glucose Fasting 82 mg/dL (60-99); Potassium 3.3 mmol/L (3.3-5.1); Sodium 137 mmol/L (135-145); Total Protein 5.7 g/dL (6.5-8.0)
[2021-12-18] MEDS: Doxycycline Hyclate 100 MG in 0.9 % Sodium Chloride 250 ML 166.67 MG IV ×2 (08:38→20:24)
[2021-12-18] MEDS: oxyCODONE HCl Immed Release 5 MG TABLET PO ×2 (10:43→17:39)
[2021-12-18] MEDS: Lactulose 20 GM/30 ML SOLUTION 30 GM PO (11:01)
--- NOTE | 2021-12-18 11:35 | MHC.CM.PN ---
HOME self care is the goal. Patient's PCP is from [facility] [place].
--- NOTE | 2021-12-18 12:30 | PC.NURSE ---
Patient c/o of 10/10 back pain. Medicated with PRN oxycodone and morphine. Patient ambulates with walker to bathroom, huntched over, although steady. Plan is for IV abx and fluids.
[2021-12-18 12:46] LABS: CT PCR NOT DETECTED (Not Detect.); NG PCR NOT DETECTED (Not Detect.)
[2021-12-18 12:50] LABS: BV Int Neg Control Negative (Negative); BV Int Pos Control Positive (Positive)
--- NOTE | 2021-12-18 13:43 | P.PNIM_ITS ---
Subjective Subjective Date of Service: 12/18/21 Interval History: No acute events overnight. Notes pain has somewhat improved Review of Systems Denies chest pain denies shortness of breath admits to abdominal pain nausea and vomiting admits to fever and chills Physical Exam Vital Signs: Vital Signs: Last Vital Signs Temp 99.0 F 12/18/21 13:06 Pulse 76 12/18/21 13:06 Resp 20 12/18/21 13:06 BP 98/56 L 12/18/21 13:06 Pulse Ox 98 12/18/21 13:06 O2 Del Method 12/18/21 13:06 BMI result Body Mass Index 23.3 Const: Other: Visibly anxious but no acute distress Resp: Other: Clear to auscultation bilaterally no rales rhonchi or wheezes Cardio: Other: No S4; positive S1-S2; no S3 murmurs rubs or gallops GI: Other: Soft minimal epigastric tenderness positive bowel sounds 4 quadrants Back/Spine/Pelvis: Other: Mild left CVA tenderness Neuro: Other: Cranial nerves 2-12 grossly intact as tested. Motor is 5/5 all extremities. Sensation is intact. Cognition appropriate but anxious Extrem: Other: No edema bilaterally Objective Data Active Medications Sodium Chloride (Ns) 1,000 mls @ 125 mls/hr IVCONT .Q8H [facility] Last Admin: 12/18/21 11:14 Dose: 125 mls/hr Documented By: TENISHA Doxycycline Hyclate 100 mg/ (Sodium Chloride) 250 mls @ 166.67 mls/hr IV Q12H [facility] Last Infusion: 12/18/21 10:15 Dose: 0 mls/hr Documented By: TENISHA Ceftriaxone Sodium 1 gm/ (Sodium Chloride) 50 mls @ 100 mls/hr IV Q24H [facility] Last Infusion: 12/18/21 01:21 Dose: 0 mls/hr Documented By: CHIN Metronidazole (Flagyl) 500 mg in 100 mls @ 100 mls/hr IV Q8H [facility] Last Admin: 12/18/21 12:40 Dose: 100 mls/hr Documented By: TENISHA Morphine Sulfate (Morphine Sulfate 4 Mg/Ml Cartridge) 4 mg IVPUSH Q4H PRN; Protocol PRN Reason: Pain, Severe (Pain Scale 7-10) Last Admin: 12/18/21 12:40 Dose: 4 mg Documented By: TENISHA Oxycodone HCl (Oxycodone Hcl Immed Release 5 Mg Tablet) 5 mg PO Q6H PRN PRN Reason: Pain, Moderate (Pain Scale 4-6 Last Admin: 12/18/21 10:43 Dose: 5 mg Documented By: TENISHA Sodium Chloride (0.9 % Sodium Chloride Flush 3 Ml Syringe) 3 ml IVFLUSH QSHIFT [facility] Last Admin: 12/18/21 08:39 Dose: Not Given Documented By: ABRAHAM Non-Admin Reason: IV Running Labs CBC & Chem 7: 12/18/21 06:35 12/18/21 06:35 Labs: Laboratory Results - last 24 hr 12/17/21 12/17/21 12/17/21 14:51 14:51 14:52 MCV 88.8 MCH 30.1 MCHC 34.0 RDW 13.1 Plt Count 250 MPV 10.8 Immature Gran % (Auto) 0.6 H Neut % (Auto) 83.8 H Lymph % (Auto) 6.1 L [place] % (Auto) 9.3 Eos % (Auto) 0.1 Baso % (Auto) 0.1 Lymph # (Auto) 1.2 [place] # (Auto) 1.8 H Eos # (Auto) 0.0 Baso # (Auto) 0.0 Abs Immat Gran (auto) 0.12 H Absolute Neuts (auto) 16.6 H Absolute Nucleated RBC 0.000 Nucleated RBC % (auto) 0.0 Smear Tech's Comments VERIFIED Anion Gap Estim Creat Clear Calc Estimated GFR Random Glucose Fasting Glucose Lactic Acid 2.5 H* Lactic Acid F/U @ 2Hr Calcium Total Bilirubin Direct Bilirubin AST ALT Alkaline Phosphatase Total Protein Albumin Lipase Beta HCG, Quant Urine Color Urine Appearance Urine pH Ur Specific [place] Urine Protein Urine Glucose (UA) Urine Ketones Urine Blood Urine Nitrite Ur Leukocyte Esterase Urine RBC Urine WBC Ur Squamous Epith Cells Urine Bacteria Hyaline Casts Urine Test Brenda species DNA Chlam trachomat DNA PCR COVID-19 ([facility]) Negative COVID-19 Clin Com See Note Gard[place]rella DNA Probe N.gonorrhoeae DNA (PCR) Trichomonas DNA Probe 12/17/21 12/17/21 12/17/21 14:52 17:24 18:00 MCV MCH MCHC RDW Plt Count MPV Immature Gran % (Auto) Neut % (Auto) Lymph % (Auto) [place] % (Auto) Eos % (Auto) Baso % (Auto) Lymph # (Auto) [place] # (Auto) Eos # (Auto) Baso # (Auto) Abs Immat Gran (auto) Absolute Neuts (auto) Absolute Nucleated RBC Nucleated RBC % (auto) Smear Tech's Comments Anion Gap 18 Estim Creat Clear Calc 101.3 Estimated GFR > 60 Random Glucose 85 Fasting Glucose Lactic Acid Lactic Acid F/U @ 2Hr 0.6 Calcium 8.8 Total Bilirubin 0.9 Direct Bilirubin 0.5 AST 22 ALT 23 Alkaline Phosphatase 90 Total Protein 7.4 Albumin 3.8 Lipase 9 Beta HCG, Quant < 2 Urine Color Urine Appearance Urine pH Ur Specific [place] Urine Protein Urine Glucose (UA) Urine Ketones Urine Blood Urine Nitrite Ur Leukocyte Esterase Urine RBC Urine WBC Ur Squamous Epith Cells Urine Bacteria Hyaline Casts Urine Test Brenda species DNA Negative Chlam trachomat DNA PCR COVID-19 ([facility]) COVID-19 Clin Com [place]rella DNA Probe Positive A N.gonorrhoeae DNA (PCR) Trichomonas DNA Probe Negative 12/17/21 12/17/21 12/17/21 18:02 18:02 18:02 MCV MCH MCHC RDW Plt Count MPV Immature Gran % (Auto) Neut % (Auto) Lymph % (Auto) [place] % (Auto) Eos % (Auto) Baso % (Auto) Lymph # (Auto) [place] # (Auto) Eos # (Auto) Baso # (Auto) Abs Immat Gran (auto) Absolute Neuts (auto) Absolute Nucleated RBC Nucleated RBC % (auto) Smear Tech's Comments Anion Gap Estim Creat Clear Calc Estimated GFR Random Glucose Fasting Glucose Lactic Acid Lactic Acid F/U @ 2Hr Calcium Total Bilirubin Direct Bilirubin AST ALT Alkaline Phosphatase Total Protein Albumin Lipase Beta HCG, Quant Urine Color [place] A Urine Appearance Clear Urine pH 7.0 Ur Specific [place] >= 1.030 H Urine Protein 30 (1+) H Urine Glucose (UA) Negative Urine Ketones 40 Urine Blood Large (3+) H Urine Nitrite Negative Ur Leukocyte Esterase Trace H Urine RBC >20 H Urine WBC 6-10 H Ur Squamous Epith Cells 6-10 Urine Bacteria 3+ Hyaline Casts 0-2 Urine Test NEGATIVE Brenda species DNA Chlam trachomat DNA PCR NOT DETECTED COVID-19 ([facility]) COVID-19 Clin Com Gard[place]rella DNA Probe N.gonorrhoeae DNA (PCR) NOT DETECTED Trichomonas DNA Probe 12/18/21 12/18/21 06:35 06:35 MCV 90.2 MCH 30.0 MCHC 33.2 RDW 13.4 Plt Count 199 MPV 11.2 Immature Gran % (Auto) 0.6 H Neut % (Auto) 77.7 H Lymph % (Auto) 11.5 L [place] % (Auto) 9.8 Eos % (Auto) 0.2 Baso % (Auto) 0.2 Lymph # (Auto) 1.4 [place] # (Auto) 1.2 Eos # (Auto) 0.0 Baso # (Auto) 0.0 Abs Immat Gran (auto) 0.08 H Absolute Neuts (auto) 9.6 H Absolute Nucleated RBC 0.000 Nucleated RBC % (auto) 0.0 Smear Tech's Comments Anion Gap 14 Estim Creat Clear Calc 114.3 Estimated GFR > 60 Random Glucose Fasting Glucose 82 Lactic Acid Lactic Acid F/U @ 2Hr Calcium 7.4 L D Total Bilirubin 0.7 Direct Bilirubin AST 14 ALT 18 Alkaline Phosphatase 61 D Total Protein 5.7 L D Albumin 2.9 L D Lipase Beta HCG, Quant Urine Color Urine Appearance Urine pH Ur Specific [place] Urine Protein Urine Glucose (UA) Urine Ketones Urine Blood Urine Nitrite Ur Leukocyte Esterase Urine RBC Urine WBC Ur Squamous Epith Cells Urine Bacteria Hyaline Casts Urine Test Brenda species DNA Chlam trachomat DNA PCR COVID-19 ([facility]) COVID-19 Clin Com Gard[place]rella DNA Probe N.gonorrhoeae DNA (PCR) Trichomonas DNA Probe Microbiology Microbiology Results: Microbiology 12/17/21 18:02 Urine Culture - Preliminary Urine clean catch - Urine frank top Gram negative jordan Assessment and Plan (1) Acute focal nephritis: Status: Acute (2) Hemorrhagic cyst of right ovary: Status: Acute (3) Liver mass: Status: Acute Plan 21-year-old female presents with approximately 4 days of diffuse abdominal pain fever and chills. Workup in the emergency room consistent with focal nephritis left kidney. Also of note is emesis tragic cyst of the right ovary 1. Acute focal nephritis (left) -IV Zosyn q.6 hours -follow-up blood and urine cultures -IV volume repletion with normal saline -follow renal/divalents -pain management 2. Hemorrhagic cyst of right ovary (mother with a history of ovarian cancer) -seen by manager of tires sales recommendations appreciated 3. Liver mass -reviewed radiology but. . . No worrisome features Full code Ambulation Patient will require ongoing hospitalization for IV and by I had S Quality Stroke Does the patient have a stroke diagnosis?: No VTE Prior VTE?: No VTE Risk Level:: Medical - low VTE Device Contraindication: Treatment Not Indicated VTE Drug Contraindication: Treatment Not Indicated
[2021-12-18] MEDS: 0.9 % Sodium Chloride Flush 3 ML SYRINGE IVFLUSH ×2 (15:48→23:57)
[2021-12-19] VITALS (8 sets, daily range): BP systolic 93–121; BP diastolic 51–67; PULSE 63–105; RESP 17–19; TEMP 36.4–37.1; O2SAT 98–100
[2021-12-19] MEDS: cefTRIAXone sodium 1 GM in 0.9 % Sodium Chloride 50 ML IV (00:01)
[2021-12-19] MEDS: Morphine Sulfate 4 MG/ML CARTRIDGE IVPUSH ×4 (00:27→10:47)
[2021-12-19] MEDS: metroNIDAZOLE/NS 500 MG/100 ML PIGGYBACK 100 MG IV ×3 (05:53→21:32)
[2021-12-19 06:14] LABS: MANUAL DIFF FLAG NO
[2021-12-19 06:23] LABS: Basophils Percent Auto 0.3 % (0-2); Eosinophils Percent Auto 0.3 % (0-4); Hematocrit 25.6 % (37.0-47.0); Hemoglobin 8.4 g/dl (12.0-16.0); Imm Gran Abs Auto 0.08 X10*3/uL (0.00-0.03); Imm Gran Pct Auto 0.9 % (0.0-0.4); Lymphocytes Absolute Auto 1.6 X10*3/uL (1.2-4.9); Lymphocytes Percent Auto 18.1 % (20-40); Mean Corpuscular HGB Conc 32.8 g/dl (31.0-35.0); Mean Corpuscular Hemoglobin 29.7 pg (27.0-33.0); Mean Corpuscular Volume 90.5 fL (80.0-98.0); Mean Platelet Volume 11.4 fL (9.4-12.3); Monocytes Absolute Auto 1.1 X10*3/uL (0.1-1.2); Monocytes Percent Auto 12.3 % (2-11); Neutrophils Absolute Auto 5.8 x10*3/uL (2.0-8.3); Neutrophils Percent Auto 68.1 % (45-73); Platelet Count 219 X10*3/uL (160-400); Red Blood Count 2.83 X10*6/uL (4.20-5.50); Red Cell Distribution Width 13.6 % (11.0-16.0); White Blood Count 8.6 X10*3/uL (4.8-10.8)
[2021-12-19 07:10] LABS: Alanine Aminotransferase 15 U/L (0-31); Alkaline Phosphatase 56 U/L (39-117); Anion Gap 14 (12-20); Aspartate Amino Transferase 14 U/L (5-31); Bilirubin Total 0.6 mg/dL (0.0-1.0); Blood Urea Nitrogen 4 mg/dL (9-16); Calcium 7.7 mg/dL (8.4-10.2); Carbon Dioxide 20 mmol/L (22-29); Chloride 104 mmol/L (96-108); Creatinine Clr Calc Pharmacy 121.3; Estimated Glomerular Filt Rate > 60; Glucose Fasting 82 mg/dL (60-99); Potassium 3.2 mmol/L (3.3-5.1); Sodium 135 mmol/L (135-145); Total Protein 5.8 g/dL (6.5-8.0)
[2021-12-19] MEDS: Doxycycline Hyclate 100 MG in 0.9 % Sodium Chloride 250 ML 166.67 MG IV ×2 (08:21→19:57)
[2021-12-19 09:03] LABS: Magnesium 1.8 mg/dL (1.6-2.6)
[2021-12-19] MEDS: Potassium Chloride Packet 20 MEQ PACKET PO (09:19)
--- NOTE | 2021-12-19 10:36 | PM.UROCN ---
History of Present Illness Consult details Consult date: 12/19/21 Narrative: Pyelonephritis 21-year-old female Presents with 4 day history of evening fevers and sweats with chills Admission found to have elevated white count Urine and blood culture show E coli consistent with urosepsis Culture shows ampicillin resistance Good response to antibiotics No prior episodes Imaging with focal nephritis of left kidney measuring 4 cm and right ovarian complex cyst Will see in follow-up for imaging Review of Systems Constitutional: Constitutional: Reports as per HPI and Reports no additional constitutional complaints Cardiovascular: Cardiovascular: Reports as per HPI and Reports no additional cardiovascular complaints Respiratory: Respiratory: Reports as per HPI and Reports no additional respiratory complaints Gastrointestinal: Gastrointestinal: Reports as per HPI and Reports no additional gastrointestinal complaints Genitourinary: Genitourinary: Reports as per HPI Musculoskeletal: Musculoskeletal: Reports no additional musculoskeletal complaints and Reports as per HPI Neurologic: Reports system reviewed and no additional complaints, except as documented and Reports as per HPI PMFSH Past Medical History Medical History No known health problems Social History Social History Household Members: Family Housing: Apartment Do you presently have visiting nurse or other home services: No Alcohol intake: never Patient Tobacco Use Status: Current everyday Tobacco user Substance Use Type: Marijuana service: No Current occupational status: employed Meds Allergies Allergy/AdvReac Type Severity Reaction Status Date / Time No Known Allergies Allergy Unverified 12/17/19 16:56 Active Medications: Current Medications Sodium Chloride (Ns) 1,000 mls @ 125 mls/hr IVCONT .Q8H [facility] Last Infusion: 12/19/21 05:56 Dose: Infused Doxycycline Hyclate 100 mg/ (Sodium Chloride) 250 mls @ 166.67 mls/hr IV Q12H [facility] Last Infusion: 12/19/21 10:24 Dose: Infused Ceftriaxone Sodium 1 gm/ (Sodium Chloride) 50 mls @ 100 mls/hr IV Q24H [facility] Last Infusion: 12/19/21 00:50 Dose: Infused Metronidazole (Flagyl) 500 mg in 100 mls @ 100 mls/hr IV Q8H [facility] Last Infusion: 12/19/21 07:05 Dose: Infused Morphine Sulfate (Morphine Sulfate 4 Mg/Ml Cartridge) 4 mg IVPUSH Q4H PRN; Protocol PRN Reason: Pain, Severe (Pain Scale 7-10) Last Admin: 12/19/21 08:18 Dose: 4 mg Ondansetron HCl (Ondansetron Hcl 4 Mg/2 Ml Vial) 4 mg IVPUSH Q4H PRN PRN Reason: Nausea and Vomiting Last Admin: 12/18/21 23:56 Dose: 4 mg Oxycodone HCl (Oxycodone Hcl Immed Release 5 Mg Tablet) 5 mg PO Q6H PRN PRN Reason: Pain, Moderate (Pain Scale 4-6 Last Admin: 12/18/21 17:39 Dose: 5 mg Sodium Chloride (0.9 % Sodium Chloride Flush 3 Ml Syringe) 3 ml IVFLUSH [facility] Last Admin: 12/19/21 10:23 Dose: Not Given Home Medications Medication Instructions Recorded Confirmed Last Taken Type No Known Home Meds 12/18/21 12/18/21 Unknown History Physical Exam Vital Signs: Vital Signs: Last Vital Signs Temp 97.5 F 12/19/21 07:43 Pulse 74 12/19/21 07:43 Resp 18 12/19/21 07:43 BP 116/55 L 12/19/21 07:43 Pulse Ox 98 12/19/21 07:43 O2 Del Method 12/19/21 07:43 BMI result Body Mass Index 23.3 Const: General: cooperative, healthy appearing, comfortable and no acute distress Orientation/consciousness: patient oriented x3 HEENT: Face and sinus: Yes normal facial exam Mouth: moist mucous membranes Neck: Neck: Yes normal visual inspection, Yes full ROM and Yes trachea midline Chest: Chest palpation & inspection: normal inspection of the chest Resp: Effort & Inspection: normal respiratory effort, able to speak in complete sentences and no respiratory distress GI: Inspection: Yes normal to inspection Back/Spine/Pelvis: Cervical Spine: normal cervical lordosis Thoracic/Lumbar Spine: thoracic and lumbar spine normal to inspection Skin: General skin exam: no rashes or lesions noted Neuro: General: patient oriented x3, tone normal and moves all extremities Extrem: General: Yes normal to inspection and Yes capillary refill normal Results Labs Result diagrams: 12/19/21 05:15 12/19/21 05:15 Labs: Abnormal lab results 12/17/21 12/19/21 12/19/21 Range/Units 18:00 05:15 05:15 RBC 2.83 L (4.20-5.50) X10*6/uL Hgb 8.4 L (12.0-16.0) g/dl Hct 25.6 L (37.0-47.0) % Immature Gran % (Auto) 0.9 H (0.0-0.4) % Lymph % (Auto) 18.1 L (20-40) % [place] % (Auto) 12.3 H (2-11) % Abs Immat Gran (auto) 0.08 H (0.00-0.03) X10*3/uL Potassium 3.2 L (3.3-5.1) mmol/L Carbon Dioxide 20 L (22-29) mmol/L BUN 4 L (9-16) mg/dL Calcium 7.7 L (8.4-10.2) mg/dL Total Protein 5.8 L (6.5-8.0) g/dL Albumin 3.0 L (3.5-5.0) g/dL [place] DNA Probe Positive A (Negative) Short CBC 12/19/21 Range/Units 05:15 WBC 8.6 (4.8-10.8) X10*3/uL Hgb 8.4 L (12.0-16.0) g/dl Hct 25.6 L (37.0-47.0) % Plt Count 219 (160-400) X10*3/uL BMP 12/19/21 05:15 Sodium 135 Potassium 3.2 L Chloride 104 Carbon Dioxide 20 L BUN 4 L Creatinine 0.66 Calcium 7.7 L Liver Function 12/19/21 Range/Units 05:15 Total Bilirubin 0.6 (0.0-1.0) mg/dL AST 14 (5-31) U/L ALT 15 (0-31) U/L Alkaline Phosphatase 56 (39-117) U/L Albumin 3.0 L (3.5-5.0) g/dL Urine 12/17/21 12/17/21 Range/Units 18:02 18:02 Urine Color [place] A Urine Appearance Clear Urine pH 7.0 (5.0-9.0) Ur Specific [place] >= 1.030 H (1.005-1.025) Urine Protein 30 (1+) H (Neg-Trace) mg/dL Urine Glucose (UA) Negative (Negative) mg/dL Urine Test NEGATIVE (NEGATIVE) All other labs normal. Assessment and Plan (1) Pyelonephritis: Status: Acute (2) Acute focal nephritis: Status: Acute Plan Outpatient follow-up with imaging Procedures Date of Service Date of Service: 12/19/21
[2021-12-19] MEDS: 0.9 % Sodium Chloride 1,000 ML 125 ML IVCONT (11:54)
[2021-12-19] MEDS: polyethylene glycoL 3350 17 GM POWD.PACK PO (12:16)
[2021-12-19] MEDS: Docusate Sodium 100 MG CAPSULE PO (12:16)
[2021-12-19] MEDS: ondansetron HCL 4 MG/2 ML VIAL IVPUSH (13:01)
--- NOTE | 2021-12-19 14:39 | PC.NURSE ---
Pt experiencing 10/10 lower mid back pain. medicated with 4mg morphine with good effect for less the 4hrs. Also experiencing anxiety to the point of hyperventilating. required a lot of relaxation strategies. She was very weak with ambulation.Due to narcotics and pain she was made a high fall risk.
[2021-12-19] MEDS: HYDROmorphone HCl 0.5 MG/0.5 ML SYRINGE IVPUSH ×3 (15:33→21:42)
[2021-12-19] MEDS: 0.9 % Sodium Chloride Flush 3 ML SYRINGE IVFLUSH (15:39)
--- NOTE | 2021-12-19 16:10 | P.PNIM_ITS ---
Subjective Subjective Date of Service: 12/19/21 Interval History: Acute focal nephritis Review of Systems still has signifiacnt back pain no fevers or chills or new urinary symptoms Physical Exam Vital Signs: Vital Signs: Last Vital Signs Temp 98.5 F 12/19/21 12:00 Pulse 87 12/19/21 12:00 Resp 18 12/19/21 12:00 BP 119/54 L 12/19/21 12:00 Pulse Ox 100 12/19/21 12:00 O2 Del Method 12/19/21 12:00 BMI result Body Mass Index 23.3 Appearance: Alert.? Oriented X3.? cvs: rrr, [id number] , no murmur res: clear to auscultation ,no rhonchii or wheezing abd: no rebound or guarding , mostly in lumbar/lower back area , bs present. ext pulses present , no cyanosis. neuro: axo3 , nonfocal. Objective Data Active Medications Hydromorphone HCl (Hydromorphone Hcl 0.5 Mg/0.5 Ml Syringe) 0.5 mg IVPUSH Q4H PRN; Protocol PRN Reason: Pain, Mild (Pain Scale 1-3) Last Admin: 12/19/21 15:33 Dose: 0.5 mg Documented By: NIKIA Hydromorphone HCl (Hydromorphone Hcl 0.5 Mg/0.5 Ml Syringe) 0.5 mg IVPUSH BID [facility]; Protocol Sodium Chloride (Ns) 1,000 mls @ 125 mls/hr IVCONT .Q8H [facility] Last Admin: 12/19/21 11:54 Dose: 125 mls/hr Documented By: CARLOS Doxycycline Hyclate 100 mg/ (Sodium Chloride) 250 mls @ 166.67 mls/hr IV Q12H [facility] Last Infusion: 12/19/21 10:24 Dose: 166.67 mls/hr Documented By: CARLOS Ceftriaxone Sodium 1 gm/ (Sodium Chloride) 50 mls @ 100 mls/hr IV Q24H [facility] Last Infusion: 12/19/21 00:50 Dose: 0 mls/hr Documented By: ALBERT Metronidazole (Flagyl) 500 mg in 100 mls @ 100 mls/hr IV Q8H [facility] Last Admin: 12/19/21 15:39 Dose: 100 mls/hr Documented By: NIKIA Ondansetron HCl (Ondansetron Hcl 4 Mg/2 Ml Vial) 4 mg IVPUSH Q4H PRN PRN Reason: Nausea and Vomiting Last Admin: 12/19/21 13:01 Dose: 4 mg Documented By: CARLOS Oxycodone HCl (Oxycodone Hcl Immed Release 5 Mg Tablet) 5 mg PO Q6H PRN PRN Reason: Pain, Moderate (Pain Scale 4-6 Last Admin: 12/18/21 17:39 Dose: 5 mg Documented By: DELORES Polyethylene Glycol (Polyethylene Glycol 3350 17 Gm Powd.Pack) 17 gm PO DAILY PRN PRN Reason: Constipation Last Admin: 12/19/21 12:16 Dose: 17 gm Documented By: CARLOS Sodium Chloride (0.9 % Sodium Chloride Flush 3 Ml Syringe) 3 ml IVFLUSH QSHIFT [facility] Last Admin: 12/19/21 15:39 Dose: 3 ml Documented By: NIKIA Labs CBC & Chem 7: 12/19/21 05:15 12/19/21 05:15 Labs: Laboratory Results - last 24 hr 12/19/21 12/19/21 05:15 05:15 MCV 90.5 MCH 29.7 MCHC 32.8 RDW 13.6 Plt Count 219 MPV 11.4 Immature Gran % (Auto) 0.9 H Neut % (Auto) 68.1 Lymph % (Auto) 18.1 L [place] % (Auto) 12.3 H Eos % (Auto) 0.3 Baso % (Auto) 0.3 Lymph # (Auto) 1.6 [place] # (Auto) 1.1 Eos # (Auto) 0.0 Baso # (Auto) 0.0 Abs Immat Gran (auto) 0.08 H Absolute Neuts (auto) 5.8 Absolute Nucleated RBC 0.000 Nucleated RBC % (auto) 0.0 Anion Gap 14 Estim Creat Clear Calc 121.3 Estimated GFR > 60 Fasting Glucose 82 Calcium 7.7 L Magnesium 1.8 Total Bilirubin 0.6 AST 14 ALT 15 Alkaline Phosphatase 56 Total Protein 5.8 L Albumin 3.0 L Microbiology Microbiology Results: Microbiology 12/17/21 14:52 Blood Culture - Final Blood - Venous Coag negative Staphylococcus 12/17/21 18:02 Urine Culture - Final Urine clean catch - Urine frank top Escherichia coli 12/17/21 15:48 Blood Culture - Preliminary Blood - Venous No growth after 24 hours. Assessment and Plan (1) Acute focal nephritis: Status: Acute (2) Hemorrhagic cyst of right ovary: Status: Acute (3) Liver mass: Status: Acute Plan 21-year-old female presents with approximately 4 days of diffuse abdominal pain fever and chills. Workup in the emergency room consistent with focal nephritis left kidney. Also of note is emesis tragic cyst of the right ovary 1. Acute focal nephritis (left). Possible sepsis (POA) ,Resolved. -follow-up blood-coagulase neg staph and urine cultures- ecoli -IV volume repletion with normal saline, iv dilaudid ,-IV Zosyn q.6 hours -follow renal/divalents -pain management still has significant back pain-added MRI. urology eval 2. Hemorrhagic cyst of right ovary (mother with a history of ovarian cancer) -seen by cad design engineer recommendations appreciated cad design engineer follow up 3. Liver mass plan for outpatient follow up 4. Hypokalemia: Repleted. moniter bmp. Full code Ambulation Above management discussed with the patient and family in detail length. inpatient need: ongoing hospitalization for IV fluids ,antibiotics , workup for back pain Quality Stroke Does the patient have a stroke diagnosis?: No VTE Prior VTE?: No VTE Risk Level:: Medical - low VTE Device Contraindication: Treatment Not Indicated VTE Drug Contraindication: Treatment Not Indicated
--- NOTE | 2021-12-19 16:57 | PM.GYNPNOP ---
MACERATOR OPERATOR - Subjective Subjective Date of Service: 12/19/21 Interval history: Acute focal nephritis Continue to have pelvic and back pain Mild vaginal bleeding Subjective Findings: Ambulating w/ difficulty: Reports, Back pain: Reports, Bleeding normal: Reports, Pain controlled: Reports, Pain well-controlled: Reports and Voiding difficulty: Reports INSULATION ENGINEMAN Physical Exam Vitals Vital signs: Temp Pulse Resp BP Pulse Ox O2 Del Method 98.1 F 81 18 102/51 L 98 12/19/21 16:00 12/19/21 16:00 12/19/21 16:00 12/19/21 16:00 12/19/21 16:00 12/19/21 16:00 BMI result Body Mass Index 23.3 Abdomen Auscultation/Inspection/Palpation: Soft, Tenderness (Bilateral lower quadrant tenderness, no rebound) and CVA tenderness MACERATOR OPERATOR - Prog Note: Results Labs CBC & Chem 7: 12/19/21 05:15 12/19/21 05:15 Labs: Laboratory Results - last 24 hr 12/19/21 12/19/21 05:15 05:15 WBC 8.6 RBC 2.83 L Hgb 8.4 L Hct 25.6 L MCV 90.5 MCH 29.7 MCHC 32.8 RDW 13.6 Plt Count 219 MPV 11.4 Immature Gran % (Auto) 0.9 H Neut % (Auto) 68.1 Lymph % (Auto) 18.1 L [place] % (Auto) 12.3 H Eos % (Auto) 0.3 Baso % (Auto) 0.3 Lymph # (Auto) 1.6 [place] # (Auto) 1.1 Eos # (Auto) 0.0 Baso # (Auto) 0.0 Abs Immat Gran (auto) 0.08 H Absolute Neuts (auto) 5.8 Absolute Nucleated RBC 0.000 Nucleated RBC % (auto) 0.0 Sodium 135 Potassium 3.2 L Chloride 104 Carbon Dioxide 20 L Anion Gap 14 BUN 4 L Creatinine 0.66 Estim Creat Clear Calc 121.3 Estimated GFR > 60 Fasting Glucose 82 Calcium 7.7 L Magnesium 1.8 Total Bilirubin 0.6 AST 14 ALT 15 Alkaline Phosphatase 56 Total Protein 5.8 L Albumin 3.0 L MACERATOR OPERATOR - A/P (1) Acute focal nephritis: Status: Acute (2) Hemorrhagic cyst of right ovary: Status: Acute Assessment and Plan: Continue antibiotics, pain management, CBC in a.m., if pain does not improve repeat CT scan . (3) Liver mass: Status: Acute Time Spent With Patient Time: Total time spent is greater than 50% in coordination of care (as documented) at patient's floor/unit and/or counseling patient: Quality Measures - INSULATION ENGINEMAN H&P VTE Prior VTE?: No VTE Risk Level:: Medical - low VTE Device Contraindication: Treatment Not Indicated VTE Drug Contraindication: Treatment Not Indicated
[2021-12-20] MEDS: ondansetron HCL 4 MG/2 ML VIAL IVPUSH ×4 (00:50→20:04)
[2021-12-20] MEDS: cefTRIAXone sodium 1 GM in 0.9 % Sodium Chloride 50 ML IV (00:50)
[2021-12-20] MEDS: 0.9 % Sodium Chloride Flush 3 ML SYRINGE IVFLUSH ×4 (00:54→20:16)
[2021-12-20] MEDS: HYDROmorphone HCl 0.5 MG/0.5 ML SYRINGE IVPUSH ×4 (02:23→22:32)
[2021-12-20 03:25] VITALS: RESP 18
[2021-12-20 04:00] VITALS: BP 98/68; PULSE 70; RESP 17; TEMP 36.3; O2SAT 98
[2021-12-20] MEDS: metroNIDAZOLE/NS 500 MG/100 ML PIGGYBACK 100 MG IV ×3 (05:33→22:13)
[2021-12-20 06:22] LABS: MANUAL DIFF FLAG NO
[2021-12-20 06:45] LABS: Basophils Percent Auto 0.3 % (0-2); Eosinophils Absolute Auto 0.1 X10*3/uL (0.0-0.4); Hematocrit 25.4 % (37.0-47.0); Hemoglobin 8.5 g/dl (12.0-16.0); Imm Gran Abs Auto 0.07 X10*3/uL (0.00-0.03); Lymphocytes Absolute Auto 1.9 X10*3/uL (1.2-4.9); Lymphocytes Percent Auto 26.7 % (20-40); Mean Corpuscular HGB Conc 33.5 g/dl (31.0-35.0); Mean Corpuscular Hemoglobin 29.9 pg (27.0-33.0); Mean Corpuscular Volume 89.4 fL (80.0-98.0); Mean Platelet Volume 11.6 fL (9.4-12.3); Monocytes Absolute Auto 0.9 X10*3/uL (0.1-1.2); Monocytes Percent Auto 13.1 % (2-11); Neutrophils Absolute Auto 4.1 x10*3/uL (2.0-8.3); Neutrophils Percent Auto 57.9 % (45-73); Platelet Count 222 X10*3/uL (160-400); Red Blood Count 2.84 X10*6/uL (4.20-5.50); Red Cell Distribution Width 13.5 % (11.0-16.0); White Blood Count 7.2 X10*3/uL (4.8-10.8)
[2021-12-20 07:00] VITALS: BP 99/50; PULSE 52; RESP 16; TEMP 36.1; O2SAT 100
[2021-12-20 07:11] LABS: Alanine Aminotransferase 16 U/L (0-31); Albumin Level 2.8 g/dL (3.5-5.0); Alkaline Phosphatase 58 U/L (39-117); Anion Gap 14 (12-20); Aspartate Amino Transferase 18 U/L (5-31); Bilirubin Total 0.2 mg/dL (0.0-1.0); Blood Urea Nitrogen 7 mg/dL (9-16); Calcium 8.1 mg/dL (8.4-10.2); Carbon Dioxide 18 mmol/L (22-29); Chloride 109 mmol/L (96-108); Creatinine Clr Calc Pharmacy 125.1; Estimated Glomerular Filt Rate > 60; Glucose Fasting 92 mg/dL (60-99); Potassium 3.6 mmol/L (3.3-5.1); Sodium 137 mmol/L (135-145); Total Protein 5.8 g/dL (6.5-8.0)
--- NOTE | 2021-12-20 07:35 | PM.UROPN ---
Subjective Subjective Date of Service: 12/20/21 Interval history: Gradually improving - no overnight fevers Microbiology shows Urine Gram negative and Blood gram positive Suggest ID consult for outpatient antibiotic optimization Will need 14 days of therapy Physical Exam Vital Signs: Vital Signs: Last Vital Signs Temp 97 F 12/20/21 07:00 Pulse 52 12/20/21 07:00 Resp 16 12/20/21 07:00 BP 99/50 L 12/20/21 07:00 Pulse Ox 100 12/20/21 07:00 O2 Del Method 12/20/21 07:00 BMI result Body Mass Index 23.3 Const: General: cooperative, healthy appearing, comfortable and no acute distress Orientation/consciousness: patient oriented x3 HEENT: Face and sinus: Yes normal facial exam Mouth: moist mucous membranes Neck: Neck: Yes normal visual inspection, Yes full ROM and Yes trachea midline Chest: Chest palpation & inspection: normal inspection of the chest Resp: Effort & Inspection: normal respiratory effort, able to speak in complete sentences and no respiratory distress GI: Inspection: Yes normal to inspection Back/Spine/Pelvis: Cervical Spine: normal cervical lordosis Thoracic/Lumbar Spine: thoracic and lumbar spine normal to inspection Skin: General skin exam: no rashes or lesions noted Neuro: General: patient oriented x3, tone normal and moves all extremities Extrem: General: Yes normal to inspection and Yes capillary refill normal Urology Results Labs CBC & Chem 7: 12/20/21 05:28 12/20/21 05:28 Labs: Laboratory Results - last 24 hr 12/19/21 12/20/21 12/20/21 05:15 05:28 05:28 WBC 7.2 RBC 2.84 L Hgb 8.5 L Hct 25.4 L MCV 89.4 MCH 29.9 MCHC 33.5 RDW 13.5 Plt Count 222 MPV 11.6 Immature Gran % (Auto) 1.0 H Neut % (Auto) 57.9 Lymph % (Auto) 26.7 [place] % (Auto) 13.1 H Eos % (Auto) 1.0 Baso % (Auto) 0.3 Lymph # (Auto) 1.9 [place] # (Auto) 0.9 Eos # (Auto) 0.1 Baso # (Auto) 0.0 Abs Immat Gran (auto) 0.07 H Absolute Neuts (auto) 4.1 Absolute Nucleated RBC 0.000 Nucleated RBC % (auto) 0.0 Sodium 137 Potassium 3.6 Chloride 109 H Carbon Dioxide 18 L Anion Gap 14 BUN 7 L D Creatinine 0.64 Estim Creat Clear Calc 125.1 Estimated GFR > 60 Fasting Glucose 92 Calcium 8.1 L Magnesium 1.8 Total Bilirubin 0.2 AST 18 ALT 16 Alkaline Phosphatase 58 Total Protein 5.8 L Albumin 2.8 L Progress Note: A&P Assessment and plan (1) Pyelonephritis: Status: Acute (2) Sepsis: Status: Acute Plan Suggest ID consult for multiple organisms blood and urine to optimize oral outpatient meds Time Spent With Patient Time: Total time spent is greater than 50% in coordination of care (as documented) at patient's floor/unit and/or counseling patient: Progress Note: Quality Stroke Does the patient have a stroke diagnosis?: No
[2021-12-20] MEDS: Doxycycline Hyclate 100 MG in 0.9 % Sodium Chloride 250 ML 166.66 MG IV (08:27)
[2021-12-20 11:12] VITALS: BP 139/76; PULSE 55; RESP 16; TEMP 36.1; O2SAT 100
--- NOTE | 2021-12-20 13:50 | PM.GYNPNOP ---
NETWORK ARCHITECT - Subjective Subjective Date of Service: 12/20/21 Interval history: Acute focal nephritis Gradually improving Mild vaginal bleeding Subjective Findings: Ambulating well: Reports and Pain controlled: Reports INSURANCE VERIFICATION CLERK Physical Exam Vitals Vital signs: Temp Pulse Resp BP Pulse Ox O2 Del Method 97 F 55 16 139/76 100 12/20/21 11:12 12/20/21 11:12 12/20/21 11:12 12/20/21 11:12 12/20/21 11:12 12/20/21 11:12 BMI result Body Mass Index 23.3 Abdomen Auscultation/Inspection/Palpation: Tenderness (Mild bilateral tenderness) NETWORK ARCHITECT - Prog Note: Results Labs CBC & Chem 7: 12/20/21 05:28 12/20/21 05:28 Labs: Laboratory Results - last 24 hr 12/20/21 12/20/21 05:28 05:28 WBC 7.2 RBC 2.84 L Hgb 8.5 L Hct 25.4 L MCV 89.4 MCH 29.9 MCHC 33.5 RDW 13.5 Plt Count 222 MPV 11.6 Immature Gran % (Auto) 1.0 H Neut % (Auto) 57.9 Lymph % (Auto) 26.7 [place] % (Auto) 13.1 H Eos % (Auto) 1.0 Baso % (Auto) 0.3 Lymph # (Auto) 1.9 [place] # (Auto) 0.9 Eos # (Auto) 0.1 Baso # (Auto) 0.0 Abs Immat Gran (auto) 0.07 H Absolute Neuts (auto) 4.1 Absolute Nucleated RBC 0.000 Nucleated RBC % (auto) 0.0 Sodium 137 Potassium 3.6 Chloride 109 H Carbon Dioxide 18 L Anion Gap 14 BUN 7 L D Creatinine 0.64 Estim Creat Clear Calc 125.1 Estimated GFR > 60 Fasting Glucose 92 Calcium 8.1 L Total Bilirubin 0.2 AST 18 ALT 16 Alkaline Phosphatase 58 Total Protein 5.8 L Albumin 2.8 L NETWORK ARCHITECT - A/P (1) Pyelonephritis: Status: Acute Assessment and Plan: MRI of spine was negative, Urine culture grew E coli sensitive ceftriaxone, the patient is on ceftriaxone, blood culture grew coagulase negative Staph aureus. CBC stable Consider ID consult if no improvement (2) Sepsis: Status: Acute (3) PID (acute pelvic inflammatory disease): Status: Acute Assessment and Plan: Continue on ceftriaxone, doxy and Flagyl Time Spent With Patient Time: Total time spent is greater than 50% in coordination of care (as documented) at patient's floor/unit and/or counseling patient: Quality Measures - INSURANCE VERIFICATION CLERK H&P VTE Prior VTE?: No VTE Risk Level:: Medical - low VTE Device Contraindication: Treatment Not Indicated VTE Drug Contraindication: Treatment Not Indicated
--- NOTE | 2021-12-20 14:19 | P.PNIM_ITS ---
Subjective Subjective Date of Service: 12/20/21 Interval History: Acute focal nephritis Review of Systems Back pain somewhat better Abdominal pain is diffuse-more on the left side than on the right. Denies any nausea vomiting Says that she is passing bowels-saying that she has few drop of blood with stool but she she had still little wipe with few drops blood-unclear it is due to menstruation or with stool She is also having menstruations Physical Exam Vital Signs: Vital Signs: Last Vital Signs Temp 97 F 12/20/21 11:12 Pulse 55 12/20/21 11:12 Resp 16 12/20/21 11:12 BP 139/76 12/20/21 11:12 Pulse Ox 100 12/20/21 11:12 O2 Del Method 12/20/21 11:12 BMI result Body Mass Index 23.3 Appearance: Alert.? Oriented X3.? cvs: rrr, [id number] , no murmur res: clear to auscultation ,no rhonchii or wheezing abd: no rebound or guarding , abd pain seems similar to yesterday flactuating left flank , right sided mild pain,still has back pain but somewhat better,able to sit 3 hours oob , bs present. ext pulses present , no cyanosis. neuro: axo3 , nonfocal. Objective Data Active Medications Hydromorphone HCl (Hydromorphone Hcl 0.5 Mg/0.5 Ml Syringe) 0.5 mg IVPUSH Q4H PRN; Protocol PRN Reason: Pain, Mild (Pain Scale 1-3) Last Admin: 12/20/21 02:23 Dose: 0.5 mg Documented By: ALBERT Hydromorphone HCl (Hydromorphone Hcl 0.5 Mg/0.5 Ml Syringe) 0.5 mg IVPUSH BID [facility], [facility]; Protocol Last Admin: 12/20/21 08:26 Dose: 0.5 mg Documented By: DELORES Doxycycline Hyclate 100 mg/ (Sodium Chloride) 250 mls @ 166.67 mls/hr IV Q12H [facility], [facility]1983 Last Infusion: 12/20/21 10:21 Dose: 0 mls/hr Documented By: DELORES Ceftriaxone Sodium 1 gm/ (Sodium Chloride) 50 mls @ 100 mls/hr IV Q24H [facility]1983 Last Infusion: 12/20/21 01:24 Dose: 0 mls/hr Documented By: ALBERT Metronidazole (Flagyl) 500 mg in 100 mls @ 100 mls/hr IV Q8H [facility]1983 Last Infusion: 12/20/21 14:15 Dose: 0 mls/hr Documented By: DELORES Ondansetron HCl (Ondansetron Hcl 4 Mg/2 Ml Vial) 4 mg IVPUSH Q4H PRN PRN Reason: Nausea and Vomiting Last Admin: 12/20/21 08:26 Dose: 4 mg Documented By: DELORES Oxycodone HCl (Oxycodone Hcl Immed Release 5 Mg Tablet) 5 mg PO Q6H PRN PRN Reason: Pain, Moderate (Pain Scale 4-6 Last Admin: 12/18/21 17:39 Dose: 5 mg Documented By: DELORES Polyethylene Glycol (Polyethylene Glycol 3350 17 Gm Powd.Pack) 17 gm PO DAILY PRN PRN Reason: Constipation Last Admin: 12/19/21 12:16 Dose: 17 gm Documented By: CARLOS Sodium Chloride (0.9 % Sodium Chloride Flush 3 Ml Syringe) 3 ml IVFLUSH [facility] Last Admin: 12/20/21 08:27 Dose: 3 ml Documented By: DELORES Labs CBC & Chem 7: 12/20/21 05:28 12/20/21 05:28 Labs: Laboratory Results - last 24 hr 12/20/21 12/20/21 05:28 05:28 MCV 89.4 MCH 29.9 MCHC 33.5 RDW 13.5 Plt Count 222 MPV 11.6 Immature Gran % (Auto) 1.0 H Neut % (Auto) 57.9 Lymph % (Auto) 26.7 [place] % (Auto) 13.1 H Eos % (Auto) 1.0 Baso % (Auto) 0.3 Lymph # (Auto) 1.9 [place] # (Auto) 0.9 Eos # (Auto) 0.1 Baso # (Auto) 0.0 Abs Immat Gran (auto) 0.07 H Absolute Neuts (auto) 4.1 Absolute Nucleated RBC 0.000 Nucleated RBC % (auto) 0.0 Anion Gap 14 Estim Creat Clear Calc 125.1 Estimated GFR > 60 Fasting Glucose 92 Calcium 8.1 L Total Bilirubin 0.2 AST 18 ALT 16 Alkaline Phosphatase 58 Total Protein 5.8 L Albumin 2.8 L Microbiology Microbiology Results: Microbiology 12/17/21 15:48 Blood Culture - Preliminary Blood - Venous No growth after 48 hours. 12/17/21 14:52 Blood Culture - Final Blood - Venous Coag negative Staphylococcus Assessment and Plan (1) Acute focal nephritis: Status: Acute (2) Hemorrhagic cyst of right ovary: Status: Acute (3) Liver mass: Status: Acute Plan 21-year-old female presents with approximately 4 days of diffuse abdominal pain fever and chills. Workup in the emergency room consistent with focal nephritis left kidney. Also of note is emesis tragic cyst of the right ovary 1. Acute focal nephritis (left). Possible sepsis (POA) ,Resolved. -follow-up blood-coagulase neg staph( possible contaminant) and urine cultures- ecoli -IV volume repletion with normal saline, iv dilaudid ,-IV Zosyn q.6 hours -follow renal/divalents -pain management still has significant back pain-added MRI. urology eval 2. Hemorrhagic cyst of right ovary (mother with a history of ovarian cancer) -seen by fbi sharpshooter recommendations appreciated fbi sharpshooter follow up noted -continue current management 3. Liver mass plan for outpatient follow up 4. Hypokalemia: Repleted. moniter bmp. 5.abd pains eems mostly related to pyelonephritis/p.i.d. says/emergent cyst Pain control, continue antibiotics ? Unclear if GI bleed issue because she is also having mensuration but patient is told to showed was the next stool if any blood in it. Meanwhile will add stat H and H, type and cross. Added GI evaluation also. If patient condition 0 pain worsen further will consider adding CT abdomen. Full code Ambulation Above management discussed with the patient and family in detail length. inpatient need: ongoing hospitalization for IV fluids ,antibiotics Quality Stroke Does the patient have a stroke diagnosis?: No VTE Prior VTE?: No VTE Risk Level:: Medical - low VTE Device Contraindication: Treatment Not Indicated VTE Drug Contraindication: Treatment Not Indicated
--- NOTE | 2021-12-20 14:51 | MHC.CM.PN ---
NO PLAN FOR DC TODAY. MANAGING PAIN.
[2021-12-20 16:00] VITALS: BP 112/58; PULSE 64; RESP 19; TEMP 37.1; O2SAT 97
[2021-12-20 16:50] LABS: Hematocrit 27.2 % (37.0-47.0); Hemoglobin 9.2 g/dl (12.0-16.0)
[2021-12-20] MEDS: Lidocaine 4 % Patch ADH..PATCH 1 PATCH TRANSDERMA (18:44)
[2021-12-20] MEDS: Omeprazole 20 MG CAPSULE.DR PO (18:44)
[2021-12-20] MEDS: oxyCODONE HCl Immed Release 5 MG TABLET PO (18:44)
--- NOTE | 2021-12-20 19:50 | PC.NURSE ---
At 1600 pt noted to have severe pain. PRN dilauded administered and pt reported relief. MD made aware. Pt's mother reported streaks of blood in pt's bowel movement. MD assessed and ordered GI consult, blood occult stool, topical cream, lidocaine patch, omeprazole, and repeat H+H.
[2021-12-20 20:00] VITALS: BP 121/61; PULSE 60; RESP 17; TEMP 36.6; O2SAT 98
[2021-12-20] MEDS: Doxycycline Hyclate 100 MG in 0.9 % Sodium Chloride 250 ML 166.67 MG IV (20:12)
[2021-12-20] MEDS: HYDROmorphone HCl 0.5 MG/0.5 ML SYRINGE 1 MG IVPUSH (20:16)
[2021-12-20 23:16] LABS: OBS Int Ctl Valid YES; OBS1 POSITIVE (NEGATIVE)
[2021-12-21] VITALS: BP 105/61; PULSE 66; RESP 18; TEMP 36.2; O2SAT 100
[2021-12-21] MEDS: ondansetron HCL 4 MG/2 ML VIAL IVPUSH ×3 (01:43→14:10)
[2021-12-21] MEDS: cefTRIAXone sodium 1 GM in 0.9 % Sodium Chloride 50 ML IV ×2 (01:43→23:55)
[2021-12-21] MEDS: oxyCODONE HCl Immed Release 5 MG TABLET PO ×2 (01:53→18:20)
[2021-12-21 04:00] VITALS: BP 94/53; PULSE 51; RESP 18; TEMP 36.3; O2SAT 99
[2021-12-21] MEDS: Omeprazole 20 MG CAPSULE.DR PO ×2 (05:42→16:32)
[2021-12-21] MEDS: metroNIDAZOLE/NS 500 MG/100 ML PIGGYBACK 100 MG IV ×3 (05:42→21:13)
[2021-12-21] MEDS: HYDROmorphone HCl 0.5 MG/0.5 ML SYRINGE IVPUSH ×3 (06:31→23:55)
[2021-12-21] MEDS: Doxycycline Hyclate 100 MG in 0.9 % Sodium Chloride 250 ML 166.67 MG IV ×2 (08:24→19:10)
[2021-12-21 08:46] VITALS: BP 111/62; PULSE 52; RESP 16; TEMP 36.4; O2SAT 99
[2021-12-21] MEDS: Lidocaine 4 % Patch ADH..PATCH 1 PATCH TRANSDERMA (08:48)
--- NOTE | 2021-12-21 14:10 | HO.PM.IMPN ---
Subjective Subjective Date of Service: 12/21/21 Interval History: abd pain/pyelonephritis Review of Systems pain is some what better than yesterday Still feels nauseated had vomiting also. Possible had few drops of menstrual bleeding Physical Exam Vital Signs: Vital Signs: Last Vital Signs Temp 97.6 F 12/21/21 08:46 Pulse 52 12/21/21 08:46 Resp 16 12/21/21 08:46 BP 111/62 12/21/21 08:46 Pulse Ox 99 12/21/21 08:46 O2 Del Method 12/21/21 08:46 BMI result Body Mass Index 23.3 Appearance: Alert.? Oriented X3.? cvs: rrr, [id number] , no murmur res: clear to auscultation ,no rhonchii or wheezing abd: soft,no rebound or guarding , abd pain seems improving, bs present . ext pulses present , no cyanosis. neuro: axo3 , nonfocal Objective Data Active Medications Capsaicin (Capsaicin 0.025% Cream 60 Gm Tube) 1 appl TOPICAL QID PRN; Protocol PRN Reason: abd pain Hydromorphone HCl (Hydromorphone Hcl 0.5 Mg/0.5 Ml Syringe) 0.5 mg IVPUSH Q4H PRN; Protocol PRN Reason: Pain, Mild (Pain Scale 1-3) Last Admin: 12/21/21 06:31 Dose: 0.5 mg Documented By: KALEY Hydromorphone HCl (Hydromorphone Hcl 0.5 Mg/0.5 Ml Syringe) 1 mg IVPUSH BID [facility]; Protocol Last Admin: 12/21/21 10:22 Dose: Not Given Documented By: CECY Non-Admin Reason: Nausea Doxycycline Hyclate 100 mg/ (Sodium Chloride) 250 mls @ 166.67 mls/hr IV Q12H [facility] Last Infusion: 12/21/21 10:22 Dose: 0 mls/hr Documented By: CECY Ceftriaxone Sodium 1 gm/ (Sodium Chloride) 50 mls @ 100 mls/hr IV Q24H [facility] Last Infusion: 12/21/21 03:08 Dose: 0 mls/hr Documented By: KALEY Metronidazole (Flagyl) 500 mg in 100 mls @ 100 mls/hr IV Q8H [facility] Last Infusion: 12/21/21 13:28 Dose: 0 mls/hr Documented By: CECY Lidocaine (Lidocaine 4 % Patch Adh..Patch) 1 patch TRANSDERMA DAILY [facility]; Protocol Last Admin: 12/21/21 08:48 Dose: 1 patch Documented By: CECY Omeprazole (Omeprazole 20 Mg Capsule.) 20 mg PO BID@0630,1630 [facility] Last Admin: 12/21/21 05:42 Dose: 20 mg Documented By: KALEY Ondansetron HCl (Ondansetron Hcl 4 Mg/2 Ml Vial) 4 mg IVPUSH Q4H PRN PRN Reason: Nausea and Vomiting Last Admin: 12/21/21 14:10 Dose: 4 mg Documented By: CECY Oxycodone HCl (Oxycodone Hcl Immed Release 5 Mg Tablet) 5 mg PO Q6H PRN PRN Reason: Pain, Moderate (Pain Scale 4-6 Last Admin: 12/21/21 01:53 Dose: 5 mg Documented By: EDEN Polyethylene Glycol (Polyethylene Glycol 3350 17 Gm Powd.Pack) 17 gm PO DAILY PRN PRN Reason: Constipation Last Admin: 12/19/21 12:16 Dose: 17 gm Documented By: CARLOS Sodium Chloride (0.9 % Sodium Chloride Flush 3 Ml Syringe) 3 ml IVFLUSH QSHIFT [facility] Last Admin: 12/21/21 08:42 Dose: Not Given Documented By: CECY Non-Admin Reason: IV Running Labs CBC & Chem 7: 12/20/21 16:37 12/20/21 05:28 Labs: Laboratory Results - last 24 hr 12/20/21 12/20/21 16:37 23:00 Stool Occult Blood POSITIVE Blood Type A Positive Antibody Screen NEGATIVE Microbiology Microbiology Results: Microbiology 12/17/21 14:52 Blood Culture - Preliminary Blood - Venous Coag negative Staphylococcus Prelim: GPR Gram Stain only Assessment and Plan (1) Acute focal nephritis: Status: Acute (2) Hemorrhagic cyst of right ovary: Status: Acute (3) Liver mass: Status: Acute Plan 21-year-old female presents with approximately 4 days of diffuse abdominal pain fever and chills. Workup in the emergency room consistent with focal nephritis left kidney. Also of note is emesis tragic cyst of the right ovary 1. Acute focal nephritis (left). Possible sepsis (POA) ,Resolved. -follow-up blood-coagulase neg staph( possible contaminant) and urine cultures- ecoli -IV volume repletion with normal saline, iv dilaudid ,-IV Zosyn q.6 hours -follow renal/divalents -pain management still has significant back pain-added MRI. urology eval 2. Hemorrhagic cyst of right ovary (mother with a history of ovarian cancer) -seen by ob/gyn doctor recommendations appreciated ob/gyn doctor follow up noted -continue current management 3. Liver mass d/w GI Dr Serrano :plan for outpatient follow up. 4. Hypokalemia: Repleted. moniter bmp. 5.abd pains eems mostly related to pyelonephritis/p.i.d. says/emergent cyst Pain control, continue antibiotics h/h stable ysterday,will recheck possible meansutural bleed rather than GI If patient condition worsen further will consider adding CT abdomen. Full code Ambulation inpatient need: ongoing hospitalization for IV fluids ,iv antibiotics and pain meds. Quality Stroke Does the patient have a stroke diagnosis?: No VTE Prior VTE?: No VTE Risk Level:: Medical - low VTE Device Contraindication: Treatment Not Indicated VTE Drug Contraindication: Treatment Not Indicated
[2021-12-21 14:46] LABS: Hemoglobin 8.9 g/dl (12.0-16.0)
--- NOTE | 2021-12-21 14:56 | P.PNOB_ITS ---
MEMBERSHIP COORDINATOR - Subjective Subjective Date of Service: 12/21/21 Interval history: abd pain/pyelonephritis Mild improvement in pain VETERINARY MILK SPECIALIST Physical Exam Vitals Vital signs: Temp Pulse Resp BP Pulse Ox O2 Del Method 97.6 F 52 16 111/62 99 12/21/21 08:46 12/21/21 08:46 12/21/21 08:46 12/21/21 08:46 12/21/21 08:46 12/21/21 08:46 BMI result Body Mass Index 23.3 Abdomen Auscultation/Inspection/Palpation: Normal bowel sounds, Soft and Other (Tenderness improving) MEMBERSHIP COORDINATOR - Prog Note: Results Labs CBC & Chem 7: 12/21/21 14:37 12/20/21 05:28 Labs: Laboratory Results - last 24 hr 12/20/21 12/20/21 12/20/21 16:37 16:37 23:00 Hgb 9.2 L Hct 27.2 L Stool Occult Blood POSITIVE Blood Type A Positive Antibody Screen NEGATIVE 12/21/21 14:37 Hgb 8.9 L Hct 26.0 L Stool Occult Blood Blood Type Antibody Screen MEMBERSHIP COORDINATOR - A/P (1) Acute focal nephritis: Status: Acute Assessment and Plan: Defer management to hospitalist service (2) Hemorrhagic cyst of right ovary: Status: Acute Assessment and Plan: Follow-up as outpatient (3) PID (acute pelvic inflammatory disease): Status: Acute Assessment and Plan: ? PID, continue of IV antibiotics and when patient is ready to be discharged , containing on p.o. previously recommended p.o. regimen and follow-up in the office Time Spent With Patient Time: Total time spent is greater than 50% in coordination of care (as documented) at patient's floor/unit and/or counseling patient: Quality Measures - VETERINARY MILK SPECIALIST H&P VTE Prior VTE?: No VTE Risk Level:: Medical - low VTE Device Contraindication: Treatment Not Indicated VTE Drug Contraindication: Treatment Not Indicated
[2021-12-21] MEDS: Docusate Sodium 100 MG CAPSULE PO ×2 (15:03→21:14)
[2021-12-21] MEDS: Lactated Ringers 1,000 ML 80 ML IVCONT (15:03)
[2021-12-21 15:36] VITALS: BP 108/60; PULSE 53; RESP 18; TEMP 36.8; O2SAT 100
[2021-12-21 19:56] VITALS: BP 119/58; PULSE 61; RESP 19; TEMP 36.6; O2SAT 99
[2021-12-21 23:49] VITALS: BP 103/56; PULSE 79; RESP 18; TEMP 36.6; O2SAT 99
[2021-12-21] MEDS: 0.9 % Sodium Chloride Flush 3 ML SYRINGE IVFLUSH (23:56)
[2021-12-22] MEDS: ondansetron HCL 4 MG/2 ML VIAL IVPUSH ×3 (01:40→22:49)
[2021-12-22 04:00] VITALS: BP 119/56; PULSE 64; RESP 18; TEMP 36.2; O2SAT 100
[2021-12-22] MEDS: Lactated Ringers 1,000 ML 80 ML IVCONT ×2 (04:07→10:52)
[2021-12-22] MEDS: metroNIDAZOLE/NS 500 MG/100 ML PIGGYBACK 100 MG IV ×3 (05:21→22:27)
[2021-12-22] MEDS: Omeprazole 20 MG CAPSULE.DR PO ×2 (05:21→15:48)
[2021-12-22 07:23] LABS: Glucose, Whole Blood 86 mg/dL (60-115)
[2021-12-22 07:54] VITALS: BP 95/44; PULSE 51; RESP 18; TEMP 36.1; O2SAT 100
[2021-12-22] MEDS: HYDROmorphone HCl 0.5 MG/0.5 ML SYRINGE 1 MG IVPUSH (08:58)
[2021-12-22] MEDS: Docusate Sodium 100 MG CAPSULE PO ×2 (08:59→20:07)
[2021-12-22] MEDS: 0.9 % Sodium Chloride Flush 3 ML SYRINGE IVFLUSH ×3 (08:59→22:34)
[2021-12-22] MEDS: Lidocaine 4 % Patch ADH..PATCH 1 PATCH TRANSDERMA (09:00)
[2021-12-22] MEDS: Doxycycline Hyclate 100 MG in 0.9 % Sodium Chloride 250 ML 166.67 MG IV ×2 (09:00→20:06)
[2021-12-22 09:07] LABS: Hematocrit 26.3 % (37.0-47.0); Hemoglobin 8.8 g/dl (12.0-16.0); Mean Corpuscular HGB Conc 33.5 g/dl (31.0-35.0); Mean Corpuscular Hemoglobin 29.2 pg (27.0-33.0); Mean Corpuscular Volume 87.4 fL (80.0-98.0); Mean Platelet Volume 11.2 fL (9.4-12.3); Platelet Count 314 X10*3/uL (160-400); Red Blood Count 3.01 X10*6/uL (4.20-5.50); Red Cell Distribution Width 13.4 % (11.0-16.0)
[2021-12-22 09:21] LABS: Anion Gap 15 (12-20); Blood Urea Nitrogen 6 mg/dL (9-16); Carbon Dioxide 21 mmol/L (22-29); Chloride 105 mmol/L (96-108); Creatinine Clr Calc Pharmacy 127.1; Estimated Glomerular Filt Rate > 60; Glucose Random 81 mg/dL (60-115); Potassium 3.8 mmol/L (3.3-5.1); Sodium 137 mmol/L (135-145)
[2021-12-22 11:06] VITALS: BP 101/58; PULSE 63; RESP 18; TEMP 36.7; O2SAT 100
[2021-12-22] MEDS: Metoclopramide HCl 5 MG TABLET PO (11:26)
[2021-12-22 11:34] LABS: Glucose, Whole Blood 79 mg/dL (60-115)
--- NOTE | 2021-12-22 12:54 | PM.NEUROCN ---
History of Present Illness Data of Consult Service Date: 12/22/21 Primary Care Provider: [facility] Reason for consult: Leg weakness 21 years old woman who is being treated for severe abdominal pain related to ovarian cyst hemorrhage and pelvic inflammatory disease. She was noted to be lethargic and weak specially in legs and this consultation was requested. When I talked to her her pain level was moderate. There was no pain in feet or legs PMFSH Past Medical History Medical History No known health problems Social History Social History Household Members: Family Housing: Apartment Do you presently have visiting nurse or other home services: No Alcohol intake: never Patient Tobacco Use Status: Current everyday Tobacco user Substance Use Type: Marijuana service: No Current occupational status: employed Meds Allergies Allergy/AdvReac Type Severity Reaction Status Date / Time No Known Allergies Allergy Unverified 12/17/19 16:56 Active Medications: Current Medications Capsaicin (Capsaicin 0.025% Cream 60 Gm Tube) 1 appl TOPICAL QID PRN; Protocol PRN Reason: abd pain Docusate Sodium (Docusate Sodium 100 Mg Capsule) 100 mg PO BID [facility] Last Admin: 12/22/21 08:59 Dose: 100 mg Docusate Sodium (Docusate Sodium 100 Mg Capsule) 200 mg PO DAILY [facility] Doxycycline Hyclate 100 mg/ (Sodium Chloride) 250 mls @ 166.67 mls/hr IV Q12H [facility] Last Infusion: 12/22/21 11:02 Dose: Infused Ceftriaxone Sodium 1 gm/ (Sodium Chloride) 50 mls @ 100 mls/hr IV Q24H [facility] Last Infusion: 12/22/21 00:35 Dose: Infused Metronidazole (Flagyl) 500 mg in 100 mls @ 100 mls/hr IV Q8H [facility] Last Infusion: 12/22/21 06:34 Dose: Infused Lactated Ringer's (Lr) 1,000 mls @ 80 mls/hr IVCONT .[id number] [facility] Last Admin: 12/22/21 10:52 Dose: 80 mls/hr Lidocaine (Lidocaine 4 % Patch Adh..Patch) 1 patch TRANSDERMA DAILY [facility]; Protocol Last Admin: 12/22/21 09:00 Dose: 1 patch Omeprazole (Omeprazole 20 Mg Capsule.Dr) 20 mg PO BID@0630,1630 [facility] Last Admin: 12/22/21 05:21 Dose: 20 mg Ondansetron HCl (Ondansetron Hcl 4 Mg/2 Ml Vial) 4 mg IVPUSH Q8H PRN PRN Reason: Nausea and Vomiting Last Admin: 12/22/21 01:40 Dose: 4 mg Oxycodone HCl (Oxycodone Hcl Immed Release 5 Mg Tablet) 10 mg PO Q4H PRN PRN Reason: Pain, Mild (Pain Scale 1-3) Polyethylene Glycol (Polyethylene Glycol 3350 17 Gm Powd.Pack) 17 gm PO DAILY PRN PRN Reason: Constipation Last Admin: 12/19/21 12:16 Dose: 17 gm Polyethylene Glycol (Polyethylene Glycol 3350 17 Gm Powd.Pack) 17 gm PO BIDWM [facility] Sodium Chloride (0.9 % Sodium Chloride Flush 3 Ml Syringe) 3 ml IVFLUSH QSHIFT [facility] Last Admin: 12/22/21 08:59 Dose: 3 ml Tramadol HCl (Tramadol Hcl 50 Mg Tablet) 25 mg PO Q6H PRN PRN Reason: Pain, Mild (Pain Scale 1-3) Home Medications Medication Instructions Recorded Confirmed Last Taken Type No Known Home Meds 12/18/21 12/18/21 Unknown History Physical Exam Vital Signs: Vital Signs: Last Vital Signs Temp 98.0 F 12/22/21 11:06 Pulse 63 12/22/21 11:06 Resp 18 12/22/21 11:06 BP 101/58 L 12/22/21 11:06 Pulse Ox 100 12/22/21 11:06 O2 Del Method 12/22/21 11:06 BMI result Body Mass Index 23.3 Neuro: Other: She was drowsy but able to follow commands. Examination was difficult as movements resulted in more pain. She was able to wiggle her toes flexor legs and follow commands. Deep tendon reflexes were trace to 1+ with flexor plantars. Results Labs CBC & Chem 7: 12/22/21 08:44 12/22/21 08:44 Labs: Short CBC 12/21/21 12/22/21 12/22/21 Range/Units 14:37 08:44 08:44 WBC 7.0 (4.8-10.8) X10*3/uL Hgb 8.9 L 8.8 L 8.8 L (12.0-16.0) g/dl Hct 26.0 L 26.3 L 26.0 L (37.0-47.0) % Plt Count 314 D (160-400) X10*3/uL BMP 12/22/21 08:44 Sodium 137 Potassium 3.8 Chloride 105 Carbon Dioxide 21 L BUN 6 L Creatinine 0.63 Calcium 8.0 L MRI of lumbar spinal did not reveal any significant abnormality per Microbiology Microbiology Results: Microbiology 12/17/21 14:52 Blood - Venous Blood Culture - Final Coag negative Staphylococcus Corynebacterium species 12/20/21 22:34 Blood - Venous Blood Culture - Preliminary No growth after 24 hours. 12/20/21 22:34 Blood - Venous Blood Culture - Preliminary No growth after 24 hours. 12/17/21 15:48 Blood - Venous Blood Culture - Preliminary No growth after 48 hours. 12/17/21 18:02 Urine clean catch - Urine frank top Urine Culture - Final Escherichia coli Assessment and Plan (1) Lethargy: Status: Acute Weakness including in legs is likely due to pain and effective medicines. No obvious finding to suggest a focal disease is noted. I recommend continuing care and also DVT prophylaxis. Procedures Date of Service Date of Service: 12/22/21
--- NOTE | 2021-12-22 13:56 | W.PM.IDCN ---
History of Present Illness Data of Consult Service Date: 12/22/21 Requesting physician: Chin Astudillo Primary Care Provider: [facility] Reason for consult: leukocytosis She presents with discomfort 8/10 LLQ and still has discomfort. She has CT scan possible early renal abscess. She has seen Urology and Superintendent Automotive Studies show only [place]. Review of Systems Review of Systems: Yes all other systems are reviewed and are negative [facility] Past Medical History Medical History No known health problems Family History Family history: reviewed and not pertinent Social History Social History Household Members: Family Housing: Apartment Do you presently have visiting nurse or other home services: No Alcohol intake: never Patient Tobacco Use Status: Current everyday Tobacco user Substance Use Type: Marijuana service: No Current occupational status: employed Meds Allergies Allergy/AdvReac Type Severity Reaction Status Date / Time No Known Allergies Allergy Unverified 12/17/19 16:56 Active Medications: Current Medications Capsaicin (Capsaicin 0.025% Cream 60 Gm Tube) 1 appl TOPICAL QID PRN; Protocol PRN Reason: abd pain Docusate Sodium (Docusate Sodium 100 Mg Capsule) 100 mg PO BID [facility] Last Admin: 12/22/21 08:59 Dose: 100 mg Docusate Sodium (Docusate Sodium 100 Mg Capsule) 200 mg PO DAILY [facility] Doxycycline Hyclate 100 mg/ (Sodium Chloride) 250 mls @ 166.67 mls/hr IV Q12H [facility] Last Infusion: 12/22/21 11:02 Dose: Infused Ceftriaxone Sodium 1 gm/ (Sodium Chloride) 50 mls @ 100 mls/hr IV Q24H [facility] Last Infusion: 12/22/21 00:35 Dose: Infused Metronidazole (Flagyl) 500 mg in 100 mls @ 100 mls/hr IV Q8H [facility] Last Admin: 12/22/21 12:58 Dose: 100 mls/hr Lactated Ringer's (Lr) 1,000 mls @ 80 mls/hr IVCONT .[id number] [facility] Last Admin: 12/22/21 10:52 Dose: 80 mls/hr Lidocaine (Lidocaine 4 % Patch Adh..Patch) 1 patch TRANSDERMA DAILY [facility]; Protocol Last Admin: 12/22/21 09:00 Dose: 1 patch Omeprazole (Omeprazole 20 Mg Capsule.Dr) 20 mg PO BID@0630,1630 [facility] Last Admin: 12/22/21 05:21 Dose: 20 mg Ondansetron HCl (Ondansetron Hcl 4 Mg/2 Ml Vial) 4 mg IVPUSH Q8H PRN PRN Reason: Nausea and Vomiting Last Admin: 12/22/21 13:03 Dose: 4 mg Oxycodone HCl (Oxycodone Hcl Immed Release 5 Mg Tablet) 10 mg PO Q4H PRN PRN Reason: Pain, Mild (Pain Scale 1-3) Polyethylene Glycol (Polyethylene Glycol 3350 17 Gm Powd.Pack) 17 gm PO DAILY PRN PRN Reason: Constipation Last Admin: 12/19/21 12:16 Dose: 17 gm Polyethylene Glycol (Polyethylene Glycol 3350 17 Gm Powd.Pack) 17 gm PO BIDWM [facility] Sodium Chloride (0.9 % Sodium Chloride Flush 3 Ml Syringe) 3 ml IVFLUSH QSHIFT [facility] Last Admin: 12/22/21 08:59 Dose: 3 ml Tramadol HCl (Tramadol Hcl 50 Mg Tablet) 25 mg PO Q6H PRN PRN Reason: Pain, Mild (Pain Scale 1-3) Home Medications Medication Instructions Recorded Confirmed Last Taken Type No Known Home Meds 12/18/21 12/18/21 Unknown History Physical Exam Vital Signs: Vital Signs: Last Vital Signs Temp 98.0 F 12/22/21 11:06 Pulse 63 12/22/21 11:06 Resp 18 12/22/21 11:06 BP 101/58 L 12/22/21 11:06 Pulse Ox 100 12/22/21 11:06 O2 Del Method 12/22/21 11:06 BMI result Body Mass Index 23.3 Const: General: cooperative HEENT: Head: Yes normal to inspection Face and sinus: Yes normal facial exam Mouth: Normal oral and palatal mucosa present Teeth and gingiva: dentition normal Eyes: General: appearance normal, both eyes and all related structures Pupils: Equal, round and reactive pupils present Resp: Effort & Inspection: normal respiratory effort Cardio: Rate: regular rate Rhythm: regular rhythm GI: Palpation (GI): Soft to palpation and Tenderness to palpation present (GI) (LLQ to flank) : General: Yes no CVA tenderness Back/Spine/Pelvis: Back: no CVA tenderness Skin: General skin exam: no rashes or lesions noted Neuro: General: moves all extremities Cranial nerves: Yes Equal, round and reactive pupils present Extrem: General: Yes normal to inspection Psych: Appearance: grossly normal Results Labs CBC & Chem 7: 12/22/21 08:44 12/22/21 08:44 Labs: Short CBC 12/21/21 12/22/21 12/22/21 Range/Units 14:37 08:44 08:44 WBC 7.0 (4.8-10.8) X10*3/uL Hgb 8.9 L 8.8 L 8.8 L (12.0-16.0) g/dl Hct 26.0 L 26.3 L 26.0 L (37.0-47.0) % Plt Count 314 D (160-400) X10*3/uL BMP 12/22/21 08:44 Sodium 137 Potassium 3.8 Chloride 105 Carbon Dioxide 21 L BUN 6 L Creatinine 0.63 Calcium 8.0 L Microbiology Microbiology Results: Microbiology 12/17/21 14:52 Blood - Venous Blood Culture - Final Coag negative Staphylococcus Corynebacterium species 12/20/21 22:34 Blood - Venous Blood Culture - Preliminary No growth after 24 hours. 12/20/21 22:34 Blood - Venous Blood Culture - Preliminary No growth after 24 hours. 12/17/21 15:48 Blood - Venous Blood Culture - Preliminary No growth after 48 hours. 12/17/21 18:02 Urine clean catch - Urine frank top Urine Culture - Final Escherichia coli Assessment and Plan (1) Pyelonephritis: Status: Acute (2) Acute focal nephritis: Status: Acute Nephritis is evident. Still ongoing pain is concerning I believe any adnexal discomfort left side referred from kidney There is concern over E coli forming abscess in kidney I dont think she has PID also and no h/o endometriosis. She has right sided cyst Plan Check renal u/s or CT left kidney check size of any abscess Continue Ceftriaxone and stop Doxycycline. 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
[2021-12-22] MEDS: Enoxaparin Sodium 40 MG/0.4 ML SYRINGE SUBCUT (15:47)
[2021-12-22 15:49] VITALS: BP 110/54; PULSE 86; RESP 16; TEMP 37; O2SAT 99
[2021-12-22 16:01] LABS: Glucose, Whole Blood 123 mg/dL (60-115)
--- NOTE | 2021-12-22 16:44 | P.PNIM_ITS ---
Subjective Subjective Date of Service: 12/22/21 Interval History: abd pain/pyelonephritis Review of Systems pain is some what better than yesterday Still feels nauseated had vomiting also. no new bleeding episodes Physical Exam Vital Signs: Vital Signs: Last Vital Signs Temp 98.6 F 12/22/21 15:49 Pulse 86 12/22/21 15:49 Resp 16 12/22/21 15:49 BP 110/54 L 12/22/21 15:49 Pulse Ox 99 12/22/21 15:49 O2 Del Method 12/22/21 15:49 BMI result Body Mass Index 23.3 Appearance: Alert.? Oriented X3.? cvs: [id number], [id number] , no murmur res: clear to auscultation ,no rhonchii or wheezing abd: soft,no rebound or guarding , pain mostly in flank area, bs present . ext pulses present , no cyanosis. neuro: axo3 , nonfocal Objective Data Active Medications Capsaicin (Capsaicin 0.025% Cream 60 Gm Tube) 1 appl TOPICAL QID PRN; Protocol PRN Reason: abd pain Docusate Sodium (Docusate Sodium 100 Mg Capsule) 100 mg PO BID [facility]PL[facility] BY [facility] Last Admin: 12/22/21 08:59 Dose: 100 mg Documented By: RUPERT Docusate Sodium (Docusate Sodium 100 Mg Capsule) 200 mg PO DAILY [facility] Enoxaparin Sodium (Enoxaparin Sodium 40 Mg/0.4 Ml Syringe) 40 mg SUBCUT Q24H REPLACED BY [facility] Last Admin: 12/22/21 15:47 Dose: 40 mg Documented By: RUPERT Doxycycline Hyclate 100 mg/ (Sodium Chloride) 250 mls @ 166.67 mls/hr IV Q12H [facility] Last Infusion: 12/22/21 11:02 Dose: 0 mls/hr Documented By: RUPERT Ceftriaxone Sodium 1 gm/ (Sodium Chloride) 50 mls @ 100 mls/hr IV Q24H [facility]PL[facility] Last Infusion: 12/22/21 00:35 Dose: 0 mls/hr Documented By: PAULIE Metronidazole (Flagyl) 500 mg in 100 mls @ 100 mls/hr IV Q8H [facility]PL[facility] Last Infusion: 12/22/21 13:59 Dose: 0 mls/hr Documented By: RUPERT Lactated Ringer's (Lr) 1,000 mls @ 80 mls/hr IVCONT .[id number] REPLACED BY [facility] Last Admin: 12/22/21 10:52 Dose: 80 mls/hr Documented By: RUPERT Lidocaine (Lidocaine 4 % Patch Adh..Patch) 1 patch TRANSDERMA DAILY [facility]; Protocol Last Admin: 12/22/21 09:00 Dose: 1 patch Documented By: RUPERT Omeprazole (Omeprazole 20 Mg Capsule.Dr) 20 mg PO BID@0630,1630 [facility] Last Admin: 12/22/21 15:48 Dose: 20 mg Documented By: RUPERT Ondansetron HCl (Ondansetron Hcl 4 Mg/2 Ml Vial) 4 mg IVPUSH Q8H PRN PRN Reason: Nausea and Vomiting Last Admin: 12/22/21 13:03 Dose: 4 mg Documented By: RUPERT Oxycodone HCl (Oxycodone Hcl Immed Release 5 Mg Tablet) 10 mg PO Q4H PRN PRN Reason: Pain, Mild (Pain Scale 1-3) Polyethylene Glycol (Polyethylene Glycol 3350 17 Gm Powd.Pack) 17 gm PO DAILY PRN PRN Reason: Constipation Last Admin: 12/19/21 12:16 Dose: 17 gm Documented By: CARLOS Polyethylene Glycol (Polyethylene Glycol 3350 17 Gm Powd.Pack) 17 gm PO BIDWM REPLACED BY [facility] Last Admin: 12/22/21 15:51 Dose: Not Given Documented By: RUPERT Non-Admin Reason: Patient Refused Sodium Chloride (0.9 % Sodium Chloride Flush 3 Ml Syringe) [place] Last Admin: 12/22/21 15:48 Dose: 3 ml Documented By: RUPERT Tramadol HCl (Tramadol Hcl 50 Mg Tablet) 25 mg PO Q6H PRN PRN Reason: Pain, Mild (Pain Scale 1-3) Labs CBC & Chem 7: 12/22/21 08:44 12/22/21 08:44 Labs: Laboratory Results - last 24 hr 12/22/21 12/22/21 12/22/21 07:14 08:44 08:44 MCV 87.4 MCH 29.2 MCHC 33.5 RDW 13.4 Plt Count 314 D MPV 11.2 Absolute Nucleated RBC 0.000 Nucleated RBC % (auto) 0.0 Anion Gap 15 Estim Creat Clear Calc 127.1 Estimated GFR > 60 POC Glucose 86 Random Glucose 81 Calcium 8.0 L 12/22/21 12/22/21 11:07 15:52 MCV MCH MCHC RDW Plt Count MPV Absolute Nucleated RBC Nucleated RBC % (auto) Anion Gap Estim Creat Clear Calc Estimated GFR POC Glucose 79 123 H Random Glucose Calcium Microbiology Microbiology Results: Microbiology 12/17/21 14:52 Blood Culture - Final Blood - Venous Coag negative Staphylococcus Corynebacterium species 12/20/21 22:34 Blood Culture - Preliminary Blood - Venous No growth after 24 hours. 12/20/21 22:34 Blood Culture - Preliminary Blood - Venous No growth after 24 hours. Assessment and Plan (1) PID (acute pelvic inflammatory disease): Status: Acute (2) Pyelonephritis: Status: Acute (3) Acute focal nephritis: Status: Acute Plan 21-year-old female presents with approximately 4 days of diffuse abdominal pain fever and chills.? Workup in the emergency room consistent with focal nephritis left kidney.? Also of note is emesis tragic cyst of the right ovary 1. Acute focal nephritis (left). Possible sepsis (POA) ,Resolved. -follow-up blood-coagulase neg staph( possible contaminant)? and urine cultures- ecoli -IV volume repletion with normal saline, iv dilaudid,IV ceftraixone/doxy/flagyl -follow renal/divalents -pain management: back pain /sweeling seems improved -mri -seemsfine seen by neuro : patient feels improvin , no new recomendations , ambulataion urology eval noted -continue above antibiotics. ID recomended -US abd added. 2. Hemorrhagic cyst of right ovary (mother with a history of ovarian cancer) -seen by vehicle fuel systems converter recommendations appreciated vehicle fuel systems converter follow up noted -continue current management 3. Liver mass d/w GI Dr Serrano :plan for outpatient follow up. 4. Hypokalemia:? Repleted.? moniter bmp. 5.abd pains eems mostly related to pyelonephritis/p.i.d. says/emergent cyst Pain control, continue antibiotics h/h stable ysterday,will recheck possible meansutural bleed rather than GI If patient condition worsen further will consider adding CT abdomen. Full code Ambulation inpatient need: ongoing hospitalization for IV fluids ,iv antibiotics and pain meds. Quality Stroke Does the patient have a stroke diagnosis?: No VTE Prior VTE?: No VTE Risk Level:: Medical - low VTE Device Contraindication: Treatment Not Indicated VTE Drug Contraindication: Treatment Not Indicated
[2021-12-22 19:44] VITALS: BP 105/53; PULSE 79; RESP 17; TEMP 36.8; O2SAT 100
[2021-12-22] MEDS: oxyCODONE HCl Immed Release 5 MG TABLET 10 MG PO (20:03)
[2021-12-22] MEDS: traMADoL HCL 50 MG TABLET 25 MG PO (20:04)
[2021-12-22 23:57] VITALS: BP 113/60; PULSE 53; RESP 16; TEMP 36; O2SAT 100
[2021-12-23] MEDS: cefTRIAXone sodium 1 GM in 0.9 % Sodium Chloride 50 ML IV (02:16)
[2021-12-23 04:00] VITALS: BP 114/63; PULSE 52; RESP 16; TEMP 36.8; O2SAT 99
[2021-12-23] MEDS: Lactated Ringers 1,000 ML 80 ML IVCONT (06:27)
[2021-12-23] MEDS: Omeprazole 20 MG CAPSULE.DR PO ×2 (06:28→15:30)
[2021-12-23] MEDS: metroNIDAZOLE/NS 500 MG/100 ML PIGGYBACK 100 MG IV ×3 (06:28→19:52)
[2021-12-23 07:24] VITALS: BP 122/64; PULSE 68; RESP 16; TEMP 36; O2SAT 98
[2021-12-23] MEDS: Docusate Sodium 100 MG CAPSULE 200 MG PO (08:09)
[2021-12-23] MEDS: Doxycycline Hyclate 100 MG in 0.9 % Sodium Chloride 250 ML 166.67 MG IV (08:10)
[2021-12-23] MEDS: polyethylene glycoL 3350 17 GM POWD.PACK PO (08:10)
[2021-12-23] MEDS: 0.9 % Sodium Chloride Flush 3 ML SYRINGE IVFLUSH ×2 (08:11→19:53)
[2021-12-23] MEDS: Lidocaine 4 % Patch ADH..PATCH 1 PATCH TRANSDERMA (08:13)
[2021-12-23] MEDS: Docusate Sodium 100 MG CAPSULE PO ×2 (08:14→19:52)
[2021-12-23 10:57] VITALS: BP 123/55; PULSE 60; RESP 16; TEMP 36.1; O2SAT 100
--- NOTE | 2021-12-23 11:36 | P.PNIM_ITS ---
Subjective Subjective Date of Service: 12/23/21 Interval History: abd pain/pyelonephritis Review of Systems pain is some what better than yesterday nauseated had vomiting improving. no new bleeding episode or fevers still generally weak Physical Exam Vital Signs: Vital Signs: Last Vital Signs Temp 97 F 12/23/21 10:57 Pulse 60 12/23/21 10:57 Resp 16 12/23/21 10:57 BP 123/55 L 12/23/21 10:57 Pulse Ox 100 12/23/21 10:57 O2 Del Method 12/23/21 10:57 BMI result Body Mass Index 23.3 Appearance: Alert.? Oriented X3.? cvs: rrr, [id number] , no murmur res: clear to auscultation ,no rhonchii or wheezing abd: soft,no rebound or guarding , pain mostly in flank area, bs present . ext pulses present , no cyanosis. neuro: axo3 , nonfocal Objective Data Active Medications Capsaicin (Capsaicin 0.025% Cream 60 Gm Tube) 1 appl TOPICAL QID PRN; Protocol PRN Reason: abd pain Docusate Sodium (Docusate Sodium 100 Mg Capsule) 100 mg PO BID [facility] Last Admin: 12/23/21 08:14 Dose: 100 mg Documented By: RUPERT Docusate Sodium (Docusate Sodium 100 Mg Capsule) 200 mg PO DAILY [facility] Last Admin: 12/23/21 08:09 Dose: 200 mg Documented By: RUPERT Enoxaparin Sodium (Enoxaparin Sodium 40 Mg/0.4 Ml Syringe) 40 mg SUBCUT Q24H [facility] Last Admin: 12/22/21 15:47 Dose: 40 mg Documented By: RUPERT Doxycycline Hyclate 100 mg/ (Sodium Chloride) 250 mls @ 166.67 mls/hr IV Q12H [facility] Last Infusion: 12/23/21 09:53 Dose: 0 mls/hr Documented By: RUPERT Ceftriaxone Sodium 1 gm/ (Sodium Chloride) 50 mls @ 100 mls/hr IV Q24H [facility] Last Infusion: 12/23/21 06:32 Dose: 0 mls/hr Documented By: HARMONY Metronidazole (Flagyl) 500 mg in 100 mls @ 100 mls/hr IV Q8H [facility] Last Infusion: 12/23/21 08:15 Dose: 0 mls/hr Documented By: RUPERT Lactated Ringer's (Lr) 1,000 mls @ 80 mls/hr IVCONT .[id number] [facility] Last Admin: 12/23/21 06:27 Dose: 80 mls/hr Documented By: HARMONY Lidocaine (Lidocaine 4 % Patch Adh..Patch) 1 patch TRANSDERMA DAILY [facility]; P rotocol Last Admin: 12/23/21 08:13 Dose: 1 patch Documented By: RUPERT Omeprazole (Omeprazole 20 Mg Capsule.Dr) 20 mg PO BID@0630,1630 [facility] Last Admin: 12/23/21 06:28 Dose: 20 mg Documented By: HARMONY Ondansetron HCl (Ondansetron Hcl 4 Mg/2 Ml Vial) 4 mg IVPUSH Q8H PRN PRN Reason: Nausea and Vomiting Last Admin: 12/22/21 22:49 Dose: 4 mg Documented By: HARMONY Oxycodone HCl (Oxycodone Hcl Immed Release 5 Mg Tablet) 10 mg PO Q4H PRN PRN Reason: Pain, Mild (Pain Scale 1-3) Last Admin: 12/22/21 20:03 Dose: 10 mg Documented By: HARMONY Polyethylene Glycol (Polyethylene Glycol 3350 17 Gm Powd.Pack) 17 gm PO DAILY PRN PRN Reason: Constipation Last Admin: 12/19/21 12:16 Dose: 17 gm Documented By: CARLOS Polyethylene Glycol (Polyethylene Glycol 3350 17 Gm Powd.Pack) 17 gm PO BIDWM [facility] Last Admin: 12/23/21 08:10 Dose: 17 gm Documented By: RUPERT Sodium Chloride (0.9 % Sodium Chloride Flush 3 Ml Syringe) [facility] Last Admin: 12/23/21 08:11 Dose: 3 ml Documented By: RUPERT Tramadol HCl (Tramadol Hcl 50 Mg Tablet) 25 mg PO Q6H PRN PRN Reason: Pain, Mild (Pain Scale 1-3) Last Admin: 12/22/21 20:04 Dose: 25 mg Documented By: HARMONY Labs CBC & Chem 7: 12/22/21 08:44 12/22/21 08:44 Labs: Laboratory Results - last 24 hr 12/22/21 15:52 POC Glucose 123 H Microbiology Microbiology Results: Microbiology 12/20/21 22:34 Blood Culture - Preliminary Blood - Venous No growth after 48 hours. 12/20/21 22:34 Blood Culture - Preliminary Blood - Venous No growth after 48 hours. 12/17/21 15:48 Blood Culture - Final Blood - Venous No growth after 5 days. 12/17/21 14:52 Blood Culture - Final Blood - Venous Coag negative Staphylococcus Corynebacterium species Assessment and Plan (1) Sepsis: Status: Acute (2) Pyelonephritis: Status: Acute (3) PID (acute pelvic inflammatory disease): Status: Acute (4) Lethargy: Status: Acute Plan 21-year-old female presents with approximately 4 days of diffuse abdominal pain fever and chills.? Workup in the emergency room consistent with focal nephritis left kidney.? Also of note is emesis tragic cyst of the right ovary 1. Acute focal nephritis (left). Possible sepsis (POA) ,Resolved. -follow-up blood-coagulase neg staph( possible contaminant)? and urine cultures- ecoli senstive to ceftriaxone . repeat blood cultures neg -follow renal/divalents -pain management: back pain /sweeling seems improved -mri -seemsfine seen by neuro : patient feels improvin , no new recomendations , ambulataion urology eval? noted -continue above antibiotics. ID recomended -US abd-seems fine ,continue iv antibiotics,-IV volume repletion with normal saline, will swtich to po oxycodone ,IV ceftraixone/doxy/flagyl 2. Hemorrhagic cyst of right ovary (mother with a history of ovarian cancer) -seen by welt rougher recommendations appreciated welt rougher follow up noted -continue current management 3. Liver mass d/w GI Dr Serrano :plan for outpatient follow up. 4. Hypokalemia:? Repleted and resolved .? moniter bmp. 5.abd pains eems mostly related to pyelonephritis/p.i.d. says/emergent cyst Pain control, continue antibiotics h/h stable ysterday,will recheck possible meansutural bleed rather than GI If patient condition worsen further will consider adding CT abdomen. Full code Ambulation inpatient need: ongoing hospitalization for IV fluids ,iv antibiotics and pain meds. Quality Stroke Does the patient have a stroke diagnosis?: No VTE Prior VTE?: No VTE Risk Level:: Medical - low VTE Device Contraindication: Treatment Not Indicated VTE Drug Contraindication: Treatment Not Indicated
[2021-12-23] MEDS: oxyCODONE HCl Immed Release 5 MG TABLET 10 MG PO (15:29)
[2021-12-23] MEDS: Enoxaparin Sodium 40 MG/0.4 ML SYRINGE SUBCUT (15:30)
[2021-12-23 16:06] VITALS: BP 122/75; PULSE 55; RESP 18; TEMP 36.8; O2SAT 100
[2021-12-23 20:00] VITALS: BP 94/50; PULSE 77; RESP 17; TEMP 36.8; O2SAT 100
[2021-12-24] MEDS: ondansetron HCL 4 MG/2 ML VIAL IVPUSH (01:31)
--- NOTE | 2021-12-24 02:29 | PM.EVENT ---
Event Note Date of Service: 12/24/21 Event Note: patient IV line infiltrated, he is refusing and other IV at this time. Will try again in the a.m.. At this time he is covered for the nex<del>t</del> <del>12</del> <del>hours.</del>
[2021-12-24 04:00] VITALS: BP 115/58; PULSE 52; RESP 17; TEMP 36.6; O2SAT 98
[2021-12-24] MEDS: Omeprazole 20 MG CAPSULE.DR PO (06:41)
[2021-12-24] MEDS: 0.9 % Sodium Chloride Flush 3 ML SYRINGE IVFLUSH (07:24)
[2021-12-24] MEDS: Lidocaine 4 % Patch ADH..PATCH 1 PATCH TRANSDERMA (07:27)
[2021-12-24 07:49] VITALS: TEMP 36.6
[2021-12-24] MEDS: metroNIDAZOLE 500 MG TABLET PO (10:17)
--- NOTE | 2021-12-24 11:10 | P.DS_ITS ---
DS: Providers Provider Date of Service: 12/24/21 Date of admission: 12/17/21 18:21 Primary care physician: [facility] Consults: 12/19/21 09:41 Consult to Urology Routine Consulting Provider: Percy Daley Reason for consultation: focal pyelonephritis Has provider been notified: No 12/21/21 17:56 Consult to Infectious Diseases Routine Consulting Provider: Nani Chase Reason for consultation: pyelonephritis/pid Has provider been notified: No 12/22/21 09:58 Consult to Neurology Routine Consulting Provider: [facility] Reason for consultation: pyelonephritis/legs weakness -unclear etiology Has provider been notified: No DS: Diagnosis Discharge Diagnosis (1) Sepsis: Status: Acute (2) Pyelonephritis: Status: Acute (3) PID (acute pelvic inflammatory disease): Status: Acute (4) Lethargy: Status: Acute DS: Summary Hospital Course Hospital Course: hospital course: Patient admitted for pyelonephritis as well as possible PID and sepsis , initial imaging was also found to have hemorrhagic cyst in the right ovary: Patient was started on IV antibiotic, pain management, blood culture and urine culture was sent, subsequently patient was seen by recreational therapy technician and Infectious Disease: Wide Area Network Administrator workup bruner gardnerella DNA probe positive. With above care-IV antibiotic, pain management patient seems to be improved significantly,1/2 blood culture thought to be contamination, urine culture growing E coli sensitive to ceftriaxone. repeat blood cultures negative Plan of discharge discussed with infectious disease: Recommended to give Ceftin for 1 weeks for pyelonephritis.repeated renal ultrasound (please see below imaging section)-seems fine. In addition discussed with the recreational therapy technician patient already received the near week of doxy and Flagyl will give 1 week more supply for b.i.d. coverage. Patient is to follow up outpatient with recreational therapy technician for further management of PID as well as hemorrhagic right ovary. Patient was advised to follow up with PCP in next 1-2 days before going to the work. anemia : h/h stable 8.8 ,has menstrual period please moniter cbc with pcp outpatient. intial ct abd:Liver lesion- reviewed radiology but No worrisome features-d/w GI Dr Serrano :plan for outpatient follow up. Above management discussed with the family in detail length they understand and in agreement with the plan, time spent 50 minute. Time Spent with Patient Time attestation: Total time spent providing and/or coordinating discharge services: Discharge coordination time: Greater than 30 minutes Quality: Safe Use of Opioids Does Pt have an Active Cancer Diagnosis on the Problem List?: No Quality: Stroke Does the patient have a stroke diagnosis?: No Physical Exam Vital Signs: Vital Signs: Last Vital Signs Temp 98 F 12/24/21 07:49 Pulse 52 12/24/21 04:00 Resp 17 12/24/21 04:00 BP 115/58 L 12/24/21 04:00 Pulse Ox 98 12/24/21 04:00 O2 Del Method 12/24/21 04:00 BMI result Body Mass Index 23.3 ?Appearance: Alert.? Oriented X3.? cvs: rrr, [id number] , no murmur res: clear to auscultation ,no rhonchii or wheezing abd: soft,no rebound or guarding ,nt , bs present . ext pulses present , no cyanosis. neuro: axo3 , nonfocal DS: Data Data Completed and Pending Labs on day of discharge: Preliminary micro results at discharge 12/20/21 22:34 Blood Culture - Preliminary Blood - Venous No growth after 48 hours. 12/20/21 22:34 Blood Culture - Preliminary Blood - Venous No growth after 48 hours. 07:14 08:44 08:44 MCV ? ?87.4 ? MCH ? ?29.2 ? MCHC ? ?33.5 ? RDW ? ?13.4 ? Plt Count ? ?314? D ? MPV ? ?11.2 ? Absolute Nucleated RBC ? ?0.000 ? Nucleated RBC % (auto) ? ?0.0 ? Anion Gap ? ? ?15 Estim Creat Clear Calc ? ? ?127.1 Estimated GFR ? ? ?> 60 POC Glucose ?86 ? ? Random Glucose ? ? ?81 Calcium ? ? ?8.0 L ? 12/22/21 12/22/21 ? 11:07 15:52 MCV ? ? MCH ? ? MCHC ? ? RDW ? ? Plt Count ? ? MPV ? ? Absolute Nucleated RBC ? ? Nucleated RBC % (auto) ? ? Anion Gap ? ? Estim Creat Clear Calc ? ? Estimated GFR ? ? POC Glucose ?79 ?123 H Random Glucose ? ? Calcium ? ? Organism 1 Escherichia coli Quant 50,000 to 100,000 cfu/mL E coli M.I.C. RX --------- --- Ampicillin >=32 R Extended Spectrum Beta Lactam NEG - Ceftriaxone <=1 S Gentamicin <=1 S Levofloxacin <=0.12 S Nitrofurantoin <=16 S Trimethoprim/Sulfamethoxazole <=20 S Blood Culture (First) Preliminary 12/23/21-39 No growth after 48 hours. Blood Culture (Second) Preliminary 12/23/21-39 No growth after 48 hours. Blood Culture (First) Final 12/22/21-1032 Gram stain results: Gram-positive cocci in clusters Note: Gram stain reviewed by a Computer Service Technician Gram stain results: Gram-positive rods 1 set positive/2 sets drawn Gram stain results from blood cultures should be interpreted with caution. A number of factors, including the presence of antibiotics in the specimen and the effect of growth in enriched liquid culturing medium, may cause organisms to react differently with the staining reagents. These factors occasionally cause a Gram-negative organism to stain Gram-positive and vice versa. Results of the initial Gram stain from the culture broth must always be correlated with growth on agar. Organism 1 Coag negative Staphylococcus Unlikely pathogen; call Micro if full workup indicated. Organism 2 Corynebacterium species Unlikely pathogen; call Micro if further workup indicated. MR/MR lumbar spine wo/w con IMPRESSION: No significant abnormality in the lumbar spine. No spinal canal stenosis or nerve root compression. Small central protrusion seen at L4-L5. Mild nonspecific posterior paraspinal edema without collection. No abnormal enhancement identified. US/US pelvic and transvaginal IMPRESSION: There is a 4.1 cm right ovarian cystic lesion with layering and lacelike debris coming favored to represent a hemorrhagic cyst. A follow-up pelvic ultrasound in 6-12 weeks is recommended to reassess. ? There is preserved flow to both ovaries at the moment of this examination. ? A small amount of free fluid in the pelvis is likely physiologic. ? Renal ultrasound was performed utilizing a curved array transducer. FINDINGS: RIGHT KIDNEY: 12.3 x 5 x 5 cm (SAG x AP x TRV). The kidney is normal in size, contour, and echogenicity. Renal cortical thickness is normal. No calculi or focal parenchymal lesions. No hydronephrosis. LEFT KIDNEY: 11.1 x 5.9 x 5.4 cm (SAG x AP x TRV). The kidney is normal in size, contour, and echogenicity. Renal cortical thickness is normal. No calculi or focal parenchymal lesions. No hydronephrosis. US/US renal BI IMPRESSION: 1.? No focal renal lesion/abscess identified sonographically. 2.? No hydronephrosis. Discharge Plan Discharge Patient Disposition: Home, Self-Care Discharge Diagnosis: Sepsis, UTI, PID, liver lesion Referrals: Linda Serrano MD [Physician] - 2 Weeks (follow up outpatient) [facility] [Primary Care Provider] - 1 Week Yamil Jalloh MD [Physician] - 1 Week Discharge Medications: New polyethylene glycol 3350 17 gram Powder In Packet 17 g PO DAILY PRN (Reason: Constipation) Qty: 30 0RF metronidazole 500 mg Tablet 500 mg PO Q12H Qty: 14 0RF tramadol 50 mg Tablet 25 mg PO Q6H PRN (Reason: Pain, Mild (Pain Scale 1-3)) Qty: 10 0RF docusate sodium 100 mg Capsule 100 mg PO BID Qty: 10 0RF omeprazole 20 mg Capsule,Delayed Release(Dr/Ec) 20 mg PO BID@0630,1630 Qty: 60 0RF cefuroxime axetil 500 mg Tablet 500 mg PO Q12H Qty: 16 0RF doxycycline hyclate 100 mg Tablet 100 mg PO Q12H Qty: 14 0RF ondansetron HCl 4 mg tablet 4 mg PO Q8H PRN (Reason: nausea and vomiting) 4 Days Qty: 10 0RF Discharge Orders: Discharge Order (Routine); Ordered 12/24/21 Ordered By: Chin Astudillo Diet: Advance to usual diet Activity on Discharge: As tolerated Stand Alone Forms: Patient Portal Discharge page Care Plan Goals: Patient admitted for infection in the urine and kidney , also had possible pelvic inflammatory disease: Started on IV antibiotics seems to be improving. Going home with p.o. antibiotics as suggested by infectious disease and recreational therapy technician. Patient is to follow up outpatient with recreational therapy technician. Initial CT scan shows small liver lesion: Reviewed with the radiology-no worrisome feature, liver function test seems fine, consider follow-up with GI out patiently. Further management outpatient as per PCP. anemia and patient also had menstruations: Monitor CBC out patiently with PCP and consider further workup outpatient as per PCP. Health Concerns: if any new symptoms please go to nearest emergency room for further evaluation. Plan of Treatment: Please complete the course of antibiotics. Monitor CBC. Follow-up with recreational therapy technician and GI for above. Assessment: As above. Patient Instructions: Pelvic Inflammatory Disease (DC), Kidney Infection (DC), Anemia (DC)
--- NOTE | 2021-12-24 13:08 | MHC.CM.PN ---
PT MEDICALLY CLEARED FOR D/C HOME NO SERVICES, PT TO ARRANGE TRANSPORT
== END 2021-12-24 13:20 | disposition home or self-care (01) | DRG 720 ==
LOC: HO.ED 18:01 → HO.EDOVER 18:48 → HO.S3 12-18 14:56
PROVIDERS: Physician Assistant Medical; Admitting Provider Hospitalist; Emergency Provider Internal Medicine; Visit Provider Internal Medicine
DX: A41.9 Sepsis, unspecified organism (principal); N00.9 Acute nephritic syndrome with unspecified morphologic changes; R16.0 Hepatomegaly, not elsewhere classified; E87.6 Hypokalemia; N73.8 Other specified female pelvic inflammatory diseases; B96.89 Other specified bacterial agents as the cause of diseases classified elsewhere; F17.210 Nicotine dependence, cigarettes, uncomplicated; B96.20 Unspecified Escherichia coli [E. coli] as the cause of diseases classified elsewhere; N83.201 Unspecified ovarian cyst, right side; Z20.822 Contact with and (suspected) exposure to COVID-19; Z71.6 Tobacco abuse counseling; Z80.41 Family history of malignant neoplasm of ovary
CPT/HCPCS: 36415; 72158; 74177; 76775; 76830; 76856; 80048; 80053; 80076; 81001; 81025; 82272; 82947; 83605; 83690; 83735; 84702; 85014; 85018; 85025; 85027; 86850; 86900; 86901; 87040; 87086; 87088; 87147; 87186; 87205; 87480; 87491; 87510; 87591; 87635; 87660; 93975; 96361; 96374; 96375; 96376; 99285; A9585; J0696; J1170; J1650; J2270; J2405; J2543; Q9967

== ENCOUNTER 2022-01-03 15:57 | Emergency (ER) | payer MEDICAID, SELFPAY ==
[2022-01-03 16:35] VITALS: BP 97/40; PULSE 83; RESP 16; TEMP 36.6; O2SAT 99; BMI 22.3
[2022-01-03 17:19] LABS: MANUAL DIFF FLAG NO
[2022-01-03 17:22] LABS: Basophils Percent Auto 0.6 % (0-2); Eosinophils Absolute Auto 0.1 X10*3/uL (0.0-0.4); Eosinophils Percent Auto 0.8 % (0-4); Hematocrit 34.5 % (37.0-47.0); Imm Gran Abs Auto 0.03 X10*3/uL (0.00-0.03); Imm Gran Pct Auto 0.5 % (0.0-0.4); Lymphocytes Absolute Auto 1.9 X10*3/uL (1.2-4.9); Lymphocytes Percent Auto 30.3 % (20-40); Mean Corpuscular HGB Conc 31.9 g/dl (31.0-35.0); Mean Corpuscular Hemoglobin 28.6 pg (27.0-33.0); Mean Corpuscular Volume 89.8 fL (80.0-98.0); Mean Platelet Volume 10.2 fL (9.4-12.3); Monocytes Absolute Auto 0.7 X10*3/uL (0.1-1.2); Monocytes Percent Auto 10.6 % (2-11); Neutrophils Absolute Auto 3.7 x10*3/uL (2.0-8.3); Neutrophils Percent Auto 57.2 % (45-73); Platelet Count 368 X10*3/uL (160-400); Red Blood Count 3.84 X10*6/uL (4.20-5.50); White Blood Count 6.4 X10*3/uL (4.8-10.8)
[2022-01-03 17:37] LABS: Alanine Aminotransferase 14 U/L (0-31); Alkaline Phosphatase 61 U/L (39-117); Anion Gap 12 (12-20); Aspartate Amino Transferase 20 U/L (5-31); Bilirubin Total 0.3 mg/dL (0.0-1.0); Blood Urea Nitrogen 13 mg/dL (9-16); Calcium 9.3 mg/dL (8.4-10.2); Carbon Dioxide 25 mmol/L (22-29); Chloride 104 mmol/L (96-108); Creatinine Clr Calc Pharmacy 140.4; Estimated Glomerular Filt Rate > 60; Glucose Random 82 mg/dL (60-115); Potassium 4.4 mmol/L (3.3-5.1); Sodium 137 mmol/L (135-145); Total Protein 7.6 g/dL (6.5-8.0)
[2022-01-03 20:23] VITALS: BP 100/49; PULSE 84; RESP 16; TEMP 37; O2SAT 100
== END 2022-01-03 21:46 | disposition left against medical advice (07) ==
PROVIDERS: Emergency Provider Emergency Medicine
DX: M54.50 Low back pain, unspecified (principal); R30.0 Dysuria; Z79.899 Other long term (current) drug therapy
CPT/HCPCS: 36415; 80053; 85025; 99212; 99282; 99283

== ENCOUNTER → 2022-02-12 13:54 | Outpatient (BNVA) | payer MEDICAID, SELFPAY | PROVIDERS: Visit Provider Urology | DX: N00.9 Acute nephritic syndrome with unspecified morphologic changes (principal); N12 Tubulo-interstitial nephritis, not specified as acute or chronic | CPT/HCPCS: 99202 ==

== ENCOUNTER 2022-05-08 12:34 | Outpatient (REF) | payer MEDICAID, SELFPAY ==
--- NOTE | ~2022-05-08 | US_ITS ---
EXAMINATION: US PELVIS CLINICAL INFORMATION: Right ovarian cyst; the last menstrual period was one week prior. COMPARISON: Pelvic ultrasound dated 12/17/2021. TECHNIQUE: Ultrasound of the pelvis is performed using transabdominal technique. The patient declined transvaginal imaging. FINDINGS: Uterus: The uterus is anteverted and anteflexed. The uterus measures 6.5 x 3.6 cm. (Sag x AP). The double wall endometrial thickness is 0.8 mm. The uterus is smooth in contour and has normal myometrial echogenicity. No visible fibroid. Adnexa: Both ovaries are visualized. There is normal color flow to the adnexa. There is no ovarian torsion. There is no pelvic ascites or fluid collection. Right ovary measures 3.8 x 3.2 x 2.6 cm, volume 11.4 mL. Left ovary measures 3.0 x 2.0 x 2.4 cm, volume 7.5 mL. US/US pelvic and transvaginal IMPRESSION: Unremarkable examination. There is interim resolution of the previously seen 4.1 cm right ovarian complex cyst.
== END 2022-05-08 12:35 | disposition home or self-care (01) ==
LOC: HO.US 12:34
PROVIDERS: Absent Provider Advanced Practice Midwife; Visit Provider Obstetrics & Gynecology
DX: N83.201 Unspecified ovarian cyst, right side (principal)
CPT/HCPCS: 76830; 76856

== ENCOUNTER → 2022-08-14 10:12 | Outpatient (BNVA) | payer MEDICAID, SELFPAY | PROVIDERS: Visit Provider Obstetrics & Gynecology | DX: Z87.42 Personal history of other diseases of the female genital tract (principal) | CPT/HCPCS: 99212 ==